=== PATIENT | female | born 1980 | race Caucasian/White ===

== ENCOUNTER 2017-01-19 14:33 | Inpatient (IN) | payer MEDICARE, MEDICAID ==
--- NOTE | 2017-01-19 16:31 | ED ---
Psych HPI - General Chief Complaint: Psychiatric Symptoms Stated Complaint: suicidal Time Seen by Provider: 01/19/17 15:30 Source: patient, RN notes reviewed Mode of arrival: ambulatory - History of Present Illness Initial Comments: This is a 36-year-old female history of OCD and depression who states she's feeling suicidal. She has had thoughts of overdosing on her medications. She states the main reason because her kids. She states she is not really seeing his last 8 years and she has had in the strange relationship with him. She has any fevers chills sweats he has had racing thoughts she has very obsessive- compulsive recently. She only occasionally drinks she denies any street drugs she does smoke cigarettes. MD Complaint: suicidal ideation, feels depressed - Related Data Home Medications Medication Instructions Recorded Confirmed Albuterol Inhaler [Ventolin Hfa 2 puff INHALATION RT-BID PRN 01/19/17 01/19/17 Inhaler] Doxycycline Hyclate [Vibramycin] 100 mg PO BID 01/19/17 01/19/17 Gabapentin [Neurontin] 400 mg PO TID 01/19/17 01/19/17 Hydrocodone/Acetaminophen [[place] 1 tab PO TID PRN 01/19/17 01/19/17 7.5-325] Ondansetron [Zofran] 4 mg PO TID PRN 01/19/17 01/19/17 Prazosin HCl 2 mg PO HS 01/19/17 01/19/17 QUEtiapine [SEROquel] 50 mg PO HS 01/19/17 01/19/17 Sertraline [Zoloft] 100 mg PO DAILY 01/19/17 01/19/17 buPROPion XL [Wellbutrin Xl] 150 mg PO DAILY 01/19/17 01/19/17 Allergies Allergy/AdvReac Type Severity Reaction Status Date / Time tramadol Allergy Unknown Verified 01/19/17 16:16 varenicline [From Chantix] Allergy Unknown Verified 01/19/17 16:16 acetaminophen [From Percocet] AdvReac Itching Verified 01/19/17 16:16 oxycodone [From Percocet] AdvReac Itching Verified 01/19/17 16:16 Review of Systems ROS Statement: Those systems with pertinent positive or pertinent negative responses have been documented in the HPI. ROS Other: All systems not noted in ROS Statement are negative. Past Medical History Additional Past Medical History / Comment(s): back pain, slipped disks in back, borderline personality disorder. History of Any Multi-Drug Resistant Organisms: None Reported Past Surgical History: Tubal Ligation Past Psychological History: Anxiety, Bipolar, Depression Smoking Status: Current every day smoker Past Alcohol Use History: Rare Past Drug Use History: None Reported General Exam - General Exam Comments Initial Comments: This is a well-developed well-nourished awake alert oriented 3 female Limitations: no limitations General appearance: alert, anxious Head exam: Present: atraumatic, normocephalic, normal inspection Eye exam: Present: normal appearance, PERRL, EOMI. Absent: scleral icterus, conjunctival injection, periorbital swelling ENT exam: Present: normal exam, mucous membranes moist Neck exam: Present: normal inspection. Absent: tenderness, meningismus, lymphadenopathy Respiratory exam: Present: normal lung sounds bilaterally. Absent: respiratory distress, wheezes, rales, rhonchi, stridor Cardiovascular Exam: Present: regular rate, normal rhythm, normal heart sounds. Absent: systolic murmur, diastolic murmur, rubs, gallop, clicks GI/Abdominal exam: Present: soft, normal bowel sounds. Absent: distended, tenderness, guarding, rebound, rigid Extremities exam: Present: normal inspection, full ROM, normal capillary refill. Absent: tenderness, pedal edema, joint swelling, calf tenderness Back exam: Present: normal inspection Neurological exam: Present: alert, oriented X3, CN II-XII intact Psychiatric exam: Present: depressed, suicidal ideation Skin exam: Present: warm, dry, intact, normal color. Absent: rash Course Vital Signs 01/19/17 01/19/17 15:01 17:47 Temperature 98.3 F 99.1 F Pulse Rate 128 H 86 Respiratory 18 18 Rate Blood Pressure 123/87 118/68 O2 Sat by Pulse 97 98 Oximetry Medical Decision Making - Medical Decision Making The patient was evaluated by the psychiatric service and she will be admitted for inpatient treatment. - Lab Data Lab Results 01/19/17 01/19/17 Range/Units 16:20 16:20 Urine HCG, Qual Not Detected (Not Detectd) Urine Opiates Screen Not Detected (NotDetected) Ur Oxycodone Screen Not Detected (NotDetected) Urine Methadone Screen Not Detected (NotDetected) Ur Propoxyphene Screen Not Detected (NotDetected) Ur Barbiturates Screen Not Detected (NotDetected) U Tricyclic Antidepress Detected H (NotDetected) Ur Phencyclidine Scrn Not Detected (NotDetected) Ur Amphetamines Screen Not Detected (NotDetected) U Methamphetamines Scrn Not Detected (NotDetected) U Benzodiazepines Scrn Not Detected (NotDetected) Urine Cocaine Screen Not Detected (NotDetected) U Marijuana (THC) Screen Not Detected (NotDetected) Disposition Clinical Impression: Depression, Suicidal ideation Disposition: TRANSFER TO PSYCH HOSP/UNIT Condition: Stable
[2017-01-19] MEDS ORDERED: ACETAMINOPHEN TAB 325 MG TAB PO PRN (17:47)
[2017-01-19] MEDS ORDERED: MAGNESIUM HYDROXIDE 2,400 MG/10 ML CUP PO PRN (17:47)
[2017-01-19] MEDS ORDERED: MAG HYDROX/AL HYDROX/SIMETH 30 ML CUP PO PRN (17:47)
[2017-01-19] MEDS ORDERED: ALBUTEROL INHALER 60 PUFF/8 GM INHALER INHALATION PRN (17:48)
[2017-01-19] MEDS ORDERED: ONDANSETRON 4 MG TAB PO PRN (17:48)
[2017-01-19] MEDS ORDERED: LORazepam 2 MG/ML SYRINGE IM PRN (17:51)
[2017-01-19] MEDS ORDERED: ZIPRASIDONE 20 MG VIAL IM PRN (17:52)
[2017-01-19] MEDS: QUEtiapine 50 MG TAB PO SCH (20:49)
[2017-01-19] MEDS: GABAPENTIN 400 MG CAP PO SCH (20:49)
[2017-01-19] MEDS ORDERED: PRAZOSIN 1 MG CAP PO SCH (21:00)
[2017-01-20] MEDS: GABAPENTIN 400 MG CAP PO SCH ×3 (09:01→21:05)
[2017-01-20] MEDS: SERTRALINE 100 MG TAB PO SCH (09:01)
[2017-01-20 10:05] LABS: Basophils % (A) 1 %; CH 30.6; CHCM 33.6; Eosinophils # (A) 0.2 k/uL (0-0.7); Eosinophils % (A) 4 %; HCT 40.9 % (34.0-46.0); HDW 2.63; HGB 13.4 gm/dL (11.4-16.0); Luc # (Auto) 0.12; Luc % (Auto) 2; Lymphocytes # (A) 2.2 k/uL (1.0-4.8); Lymphocytes % (A) 45 %; MCHC 32.9 g/dL (31.0-37.0); MCV 91.3 fL (80.0-100.0); Mean Platelet Volume 7.7; Monocytes # (A) 0.4 k/uL (0-1.0); Monocytes % (A) 8 %; Neutrophils % (A) 39 %; RBC 4.48 m/uL (3.80-5.40); WBC (Perox) 4.87
[2017-01-20 10:25] LABS: ALT 30 U/L (9-52); AST 28 U/L (14-36); Alkaline Phosphatase 46 U/L (38-126); Anion Gap 11 mmol/L; Blood Urea Nitrogen 15 mg/dL (7-17); Calcium 8.9 mg/dL (8.4-10.2); Carbon Dioxide 22 mmol/L (22-30); Chloride 107 mmol/L (98-107); Glucose 72 mg/dL (74-99); Non-African American GFR(MDRD) >60 (>60 ml/min/1.73 sqM); Potassium 4.1 mmol/L (3.5-5.1); Sodium 140 mmol/L (137-145); Total Bilirubin 0.6 mg/dL (0.2-1.3); Total Protein 6.8 g/dL (6.3-8.2)
[2017-01-20] MEDS: buPROPion XL 150 MG TAB.ER.24H PO SCH (12:54)
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
--- NOTE | 2017-01-20 16:26 | P.CONS ---
History of Present Illness - Reason for Consult Consult date: 01/20/17 Medical management - History of Present Illness This is a 36-year-old female. She follows with the [facility] for healthcare. She has a past medical history of degenerative disc disease, cervical cancer, tobacco use and dependence, anxiety, bipolar. Patient states that she has had depression and suicidal ideation. Her therapist has tried to get her to come into the hospital for the past month. She has tried suicide in the past with overdose. She has been going to [facility] every 3 days to pharmacy picking technician her medications. She also complains of lower back pain with radiation down her right leg. She states she normally takes [place] 7.5 mg. [facility] has set her up to follow up with a possible neurosurgeon. Patient presented to [facility] emergency center with above concerns. TSH 1.680. HCG not detected. Urine drug screen is positive for tricyclic antidepressants. Review of Systems All systems: negative Constitutional: Denies chills, Denies fever Eyes: denies blurred vision, denies pain Ears, nose, mouth and throat: Denies headache, Denies sore throat Cardiovascular: Denies chest pain, Denies shortness of breath Respiratory: Denies cough Gastrointestinal: Denies abdominal pain, Denies diarrhea, Denies nausea, Denies vomiting Genitourinary: Denies dysuria, Denies hematuria Musculoskeletal: Denies myalgias Integumentary: Denies pruritus, Denies rash Neurological: Denies numbness, Denies weakness Psychiatric: Reports depression, Reports hopelessness, Reports suicidal ideation , Denies anxiety Endocrine: Denies fatigue, Denies weight change Past Medical History Additional Past Medical History / Comment(s): Degenerative disc disease of the lumbar spine, cervical cancer, borderline personality disorder. History of Any Multi-Drug Resistant Organisms: None Reported Past Surgical History: Tubal Ligation Additional Past Surgical History / Comment(s): Cone biopsy, tear duct surgery as an Past Psychological History: Anxiety, Bipolar, Depression Smoking Status: Current every day smoker Past Alcohol Use History: Rare Additional Past Alcohol Use History / Comment(s): Patient is a smoker of a half a pack of cigarettes per day and she was 14 years old. She denies any medical marijuana, marijuana, street drug use. She drinks alcohol rarely. She has 3 children with no major medical problems. Past Drug Use History: None Reported - Past Family History Father Additional Family Medical History / Comment(s): Father is alive at age 68 with history of prostate cancer. Mother Additional Family Medical History / Comment(s): Mother is alive at age 67 with no major medical problems. Sister(s) Additional Family Medical History / Comment(s): Patient has one sister and one half-brother with no major medical problems. Medications and Allergies Home Medications Medication Instructions Recorded Confirmed Type Albuterol Inhaler [Ventolin Hfa 2 puff INHALATION RT-BID PRN 01/19/17 01/19/17 History Inhaler] Doxycycline Hyclate [Vibramycin] 100 mg PO BID 01/19/17 01/19/17 History Gabapentin [Neurontin] 400 mg PO TID 01/19/17 01/19/17 History Hydrocodone/Acetaminophen [[place] 1 tab PO TID PRN 01/19/17 01/19/17 History 7.5-325] Ondansetron [Zofran] 4 mg PO TID PRN 01/19/17 01/19/17 History Prazosin HCl 2 mg PO HS 01/19/17 01/19/17 History QUEtiapine [SEROquel] 50 mg PO HS 01/19/17 01/19/17 History Sertraline [Zoloft] 100 mg PO DAILY 01/19/17 01/19/17 History buPROPion XL [Wellbutrin Xl] 150 mg PO DAILY 01/19/17 01/19/17 History Allergies Allergy/AdvReac Type Severity Reaction Status Date / Time tramadol Allergy Unknown Verified 01/19/17 16:16 varenicline [From Chantix] Allergy Unknown Verified 01/19/17 16:16 acetaminophen [From Percocet] AdvReac Itching Verified 01/19/17 16:16 oxycodone [From Percocet] AdvReac Itching Verified 01/19/17 16:16 Physical Exam Vitals: Vital Signs Temp Pulse Pulse Resp BP BP Pulse Ox 01/20/17 06:13 98.2 F 75 12 103/64 01/19/17 20:51 105 H 109/77 01/19/17 18:12 97.6 F 103 H 103 H 107/75 01/19/17 17:47 99.1 F 86 18 118/68 98 Intake and Output 01/19/17 01/20/17 01/20/17 22:59 06:59 14:59 Other: Weight 60.101 kg Gen: This is a 36-year-old female. She is cooperative and appears to be in no acute distress. HEENT: Head is atraumatic, normocephalic. Pupils equal, round. Sclerae is anicteric. NECK: Supple. No JVD. No lymphadenopathy. No thyromegaly. LUNGS: Clear to auscultation. No wheezes or rhonchi. No intercostal retractions. HEART: Regular rate and rhythm. No murmur. ABDOMEN: Soft. Bowel sounds are present. No masses. No tenderness. EXTREMITIES: No pedal edema. No calf tenderness. NEUROLOGICAL: Patient is awake, alert and oriented x3. Cranial nerves 2 through 12 are grossly intact. Results CBC & Chem 7: 01/20/17 09:13 01/20/17 09:13 Assessment and Plan Plan: 1. Depression recurrent with suicidal ideation. Patient admitted to the mental health unit. Continue current plan of care. 2. Chronic back pain. Continue Neurontin and Tylenol. Patient states she is normally on [place] 7.53 times daily as needed. 3. History of cervical cancer stable. 4. Tobacco use and dependence. Continue nicotine patch. Impression and plan of care have been directed as dictated by the signing physician. Jaimee Galloway nurse practitioner acting as scribe for signing physician. Time with Patient: Greater than 30
[2017-01-20] MEDS: NICOTINE 14MG/24HR PATCH TRANSDERM SCH (16:38)
[2017-01-20] MEDS: hydrOXYzine PAMOATE 25 MG CAP PO PRN (16:39)
[2017-01-20] MEDS: QUEtiapine 50 MG TAB PO SCH (21:05)
[2017-01-20] MEDS: PRAZOSIN 1 MG CAP PO SCH (21:05)
[2017-01-21] MEDS: NICOTINE 14MG/24HR PATCH TRANSDERM SCH (09:10)
[2017-01-21] MEDS: SERTRALINE 100 MG TAB PO SCH (09:11)
[2017-01-21] MEDS: GABAPENTIN 400 MG CAP PO SCH ×3 (09:11→20:29)
[2017-01-21] MEDS: buPROPion XL 150 MG TAB.ER.24H PO SCH (09:11)
[2017-01-21] MEDS: hydrOXYzine PAMOATE 25 MG CAP PO PRN ×2 (09:11→21:31)
[2017-01-21] MEDS: LORazepam 1 MG TAB PO PRN (15:45)
--- NOTE | 2017-01-21 17:21 | P.PN ---
Progress Note - Text SUBJECTIVE: I reviewed the medical record and interviewed Ms. Macias. She complained of "severe" subjective anxiety and "racing thoughts." She controls her anxiety by focusing on grounding activities such as coloring. She described the "racing thoughts " as a series of thoughts that are loosely linked to each other that she experiences as automatic and difficult to control. This "racing thoughts" interferes with inability to fall asleep at night. We discussed treatment options for her subjective anxiety complaints and "racing thoughts". She agreed toa trial of Thorazine instead of the nighttime dosing of Seroquel. She was unaware of the when necessary dosing of lorazepam. She expresses concern about taking a benzodiazepine. She is opposed to Xanax because of the quick onset and short duration. She prefers a prescription for clonazepam. I reminded her discussion yesterday where she told me that her provider at [facility] discontinued the clonazepam. OBJECTIVE: She presented as a thin restless 36-year-old female who was pleasant on approach. She maintained eye contact and attended the interview. She had a bright facial expression. She fidgeted in her chair but displayed no abnormal involuntary movements. Her speech was spontaneous with slight increase in rate and rhythm. Her affect was bright, stable and appropriate. She denied suicidal ideation or wishes. She denied homicidal ideation. She did not expressed depressive cognitions including hopelessness, helplessness and worthlessness. She ruminated on the above symptoms particularly the subjective anxiety. She did not express phobias, ideas reference or paranoid ideation. Her thinking was abstract. Associations were logical and coherent. She described an experience where she hears a young child's voice that she calls Jackelin. She alleges that she has been experiencing this voice since she was a child. The experiences positive and supportive. ASSESSMENT: Her anxiety complaints are disproportionate to her presentation. She appears restless and somewhat hyperverbal. PLAN: Continue inpatient psychiatric hospitalization. Continue Wellbutrin XL her 150 mg daily in addition to Zoloft 100 mg daily. Discontinue Seroquel and begin a trial of Thorazine 25 mg at bedtime. Titrate the Thorazine according to the Rene and side effects. Continue gabapentin 400 mg by mouth 3 times a day or anxiety and pain complaints. Continue prazosin 4 mg at bedtime for a reported diagnosis of PTSD. Encourage participation in therapeutic groups and activities. Evaluate clinical status and response to treatment on a daily basis.
[2017-01-21] MEDS: PRAZOSIN 1 MG CAP PO SCH (20:30)
[2017-01-21] MEDS ORDERED: chlorproMAZINE 25 MG TAB PO SCH (21:00)
[2017-01-22] MEDS: buPROPion XL 150 MG TAB.ER.24H PO SCH (08:38)
[2017-01-22] MEDS: GABAPENTIN 400 MG CAP PO SCH (08:39)
[2017-01-22] MEDS: LORazepam 1 MG TAB PO PRN ×2 (08:40→22:05)
[2017-01-22] MEDS: NICOTINE 14MG/24HR PATCH TRANSDERM SCH (08:40)
[2017-01-22] MEDS ORDERED: SERTRALINE 100 MG TAB PO SCH (09:00)
--- NOTE | 2017-01-22 14:01 | P.PN ---
Progress Note - Text SUBJECTIVE: I reviewed the medical record and interviewed Ms. Macias. She complained of "severe" subjective anxiety, "racing thoughts", poor sleep and nightmares. She reported no change in her sleep or her nightmares with substitution of Thorazine for Seroquel. We discussed treatment options and agreed to discontinue Wellbutrin, increased Zoloft to 150 mg daily, increase gabapentin to 600 mg 3 times a day and increase Thorazine 50 mg at bedtime. She described temporary relief of subjective anxiety with the 1 mg dose of lorazepam OBJECTIVE: She presented as a thin and dramatic 36-year-old female who was pleasant on approach. She maintained eye contact and attended the interview. She had a bright facial expression. She was not as restless as yesterday. Her speech was spontaneous with respect rate and rhythm. Her affect was bright, stable and appropriate. She denied suicidal ideation or wishes. She denied homicidal ideation. She did not expressed depressive cognitions including hopelessness, helplessness and worthlessness. She ruminated on the above symptoms particularly the subjective anxiety. She did not express phobias, ideas reference or paranoid ideation. Her thinking was abstract. Associations were logical and coherent. She described an experience where she hears a young child's voice that she calls Jackelin. She alleges that she has been experiencing this voice since she was a child. The experiences positive and supportive. ASSESSMENT: Her anxiety complaints are disproportionate to her presentation. She appears restless and somewhat hyperverbal. PLAN: Continue inpatient psychiatric hospitalization. Discontinue Wellbutrin XL , increase Zoloft 150 mg daily, increase Thorazine to 50 mg at bedtime and increase gabapentin to 600 mg 3 times a day. Continue prazosin 4 mg at bedtime for a reported diagnosis of PTSD. Encourage participation in therapeutic groups and activities. Evaluate clinical status and response to treatment on a daily basis.
[2017-01-22] MEDS: hydrOXYzine PAMOATE 25 MG CAP PO PRN (15:58)
[2017-01-22] MEDS: GABAPENTIN 300 MG CAP PO SCH ×2 (15:59→22:05)
[2017-01-22] MEDS: chlorproMAZINE 25 MG TAB PO SCH (22:04)
[2017-01-22] MEDS: PRAZOSIN 1 MG CAP PO SCH (22:05)
[2017-01-23] MEDS: SERTRALINE 50 MG TAB PO SCH (10:06)
[2017-01-23] MEDS: GABAPENTIN 300 MG CAP PO SCH ×3 (10:06→21:41)
[2017-01-23] MEDS: NICOTINE 14MG/24HR PATCH TRANSDERM SCH (10:06)
[2017-01-23] MEDS: LORazepam 1 MG TAB PO PRN ×2 (10:07→21:44)
[2017-01-23] MEDS: cloNIDine HCL 0.1 MG TAB PO SCH (14:39)
--- NOTE | 2017-01-23 14:41 | P.PN ---
Progress Note - Text SUBJECTIVE: I reviewed the medical record and interviewed Ms. Macias. She complained of "racing thoughts" and alleged that the only medication that addressed this problem was Adderall. "I'm not suicidal anymore but I just can' t concentrate. I can't focus." She talked about having difficulty concentrating and attending during therapeutic groups. She understands we will not prescribe Adderall or other psychostimulants. She may benefit from a trial of Strattera but is not on formulary. As an alternative we discussed a trial of Catapres for treatment of her difficulty concentrating and attending. She agreed to a trial of a small dose. OBJECTIVE: She presented as a thin and dramatic 36-year-old female who was pleasant on approach. She maintained eye contact and attended the interview. She had a blunted but irritable facial expression. She was not restless or fidgety. Her speech was spontaneous with respect rate and rhythm. Her affect was blunted, irritable but appropriate. She denied suicidal ideation or wishes. She denied homicidal ideation. She did not expressed depressive cognitions including hopelessness, helplessness and worthlessness. She ruminated on the above symptoms particularly the subjective anxiety. She did not express phobias, ideas reference or paranoid ideation. Her thinking was abstract. Associations were logical and coherent. She described an experience where she hears a young child's voice that she calls Jackelin. She alleges that she has been experiencing this voice since she was a child. The experiences positive and supportive. ASSESSMENT: She is denying current anxiety symptoms or thoughts of or suicide. Her primary concerns was attention and concentration will not have access to psychostimulants. PLAN: Continue inpatient psychiatric hospitalization. Continue Zoloft 150 mg daily, Thorazine to 50 mg at bedtime and increase gabapentin to 600 mg 3 times a day. Continue prazosin 4 mg at bedtime for a reported diagnosis of PTSD. Trial of clonidine 0.1 mg daily. Encourage participation in therapeutic groups and activities. Evaluate clinical status and response to treatment on a daily basis.
[2017-01-23] MEDS: chlorproMAZINE 25 MG TAB PO SCH (21:40)
[2017-01-23] MEDS: PRAZOSIN 1 MG CAP PO SCH (21:44)
[2017-01-24 06:28] VITALS: TEMP 98
[2017-01-24] MEDS: cloNIDine HCL 0.1 MG TAB PO SCH (10:07)
[2017-01-24] MEDS: GABAPENTIN 300 MG CAP PO SCH (10:08)
[2017-01-24] MEDS: NICOTINE 14MG/24HR PATCH TRANSDERM SCH (10:09)
[2017-01-24] MEDS: SERTRALINE 50 MG TAB PO SCH (10:09)
[2017-01-24] MEDS: LORazepam 1 MG TAB PO PRN (10:12)
[2017-01-24 10:14] VITALS: BP 101/66; PULSE 116; RESP 18
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
== END 2017-01-24 15:05 | disposition home or self-care (01) | DRG 885 ==
LOC: EC 14:33 → 3MHU 17:41
PROVIDERS: ADMIT Psychiatry & Neurology Psychiatry; ATTEND Psychiatry & Neurology Psychiatry
DX: F33.2 Major depressive disorder, recurrent severe without psychotic features (principal); R45.851 Suicidal ideations; F44.81 Dissociative identity disorder; F17.200 Nicotine dependence, unspecified, uncomplicated; F14.90 Cocaine use, unspecified, uncomplicated; F42.9 Obsessive-compulsive disorder, unspecified; F43.10 Post-traumatic stress disorder, unspecified; F60.3 Borderline personality disorder; J42 Unspecified chronic bronchitis; Z63.8 Other specified problems related to primary support group; Z79.899 Other long term (current) drug therapy; Z85.41 Personal history of malignant neoplasm of cervix uteri; Z91.5 Personal history of self-harm; M51.36 Other intervertebral disc degeneration, lumbar region; G89.29 Other chronic pain; Z79.2 Long term (current) use of antibiotics; Z88.5 Allergy status to narcotic agent; Z88.8 Allergy status to other drugs, medicaments and biological substances
CPT/HCPCS: 80053; 80306; 81025; 82075; 84443; 85025; 99285

== ENCOUNTER → 2017-06-19 | Outpatient (CLI) | payer MEDICARE, OTHER ==
[2017-06-13 14:36] VITALS: BMI 21.6
[2017-06-19 12:15] VITALS: BP 125/85; PULSE 112; RESP 18; TEMP 98.4
--- NOTE | 2017-06-20 11:11 | P.CONS ---
History of Present Illness - Reason for Consult Consult date: 06/19/17 - History of Present Illness This is the initial consultation visit for this 56 years old female with a chronic history of severe low back pain started 3 years ago, pain started after she fell and she landed on her back, from the time she starts feeling severe back pain with radiation to the lower extremity, associated with numbness and tingling sensation in the lower extremity mainly on the right side, she denies any motor or sensory deficit, no fever or night sweats and no change in the bowel movement or urination, she tried medication management Motrin Percocet Neurontin she gets some benefit, and she tried yoga , physical therapy, TENS unit and aqua therapy with some benefit , but the intensity of the pain fluctuates between 5/10 and increases to 8/10 Patient had lumbar epidural steroid injections done in the past at different institutions and she had only minimal benefit . Past Medical History Past Medical History: Cancer, Pneumonia, Skin Disorder Additional Past Medical History / Comment(s): Degenerative disc disease of the lumbar spine, cervical cancer, SENSITIVE SKIN, GETS RASH EASILY, HYPOGLYCEMIC History of Any Multi-Drug Resistant Organisms: None Reported Past Surgical History: Tubal Ligation Additional Past Surgical History / Comment(s): PAIN INJECTIONS IN BACK, Cone biopsy, tear duct surgery as an , "CERVIX FROZEN" Past Anesthesia/Blood Transfusion Reactions: No Reported Reaction Smoking Status: Current every day smoker - Past Family History Father Additional Family Medical History / Comment(s): Father is alive at age 68 with history of prostate cancer. Mother Additional Family Medical History / Comment(s): Mother is alive at age 67 with no major medical problems. Sister(s) Additional Family Medical History / Comment(s): Patient has one sister and one half-brother with no major medical problems. Medications and Allergies Home Medications Medication Instructions Recorded Confirmed Type Albuterol Inhaler [Ventolin Hfa 2 puff INHALATION RT-BID PRN 01/19/17 06/19/17 History Inhaler] Ondansetron [Zofran] 4 mg PO TID PRN 01/19/17 06/19/17 History Prazosin HCl 4 mg PO HS 01/19/17 06/19/17 History Atomoxetine HCl [Strattera] 80 mg PO QAM 06/13/17 06/19/17 History Biotin 5,000 mcg PO DAILY 06/13/17 06/19/17 History Cholecalciferol [Vitamin D3] 5,000 unit PO DAILY 06/13/17 06/19/17 History Multivit with Calcium,Iron,Min 1 each PO DAILY 06/13/17 06/19/17 History [Women's Multivitamin] QUEtiapine FUMARATE [SEROquel] 25 mg PO BID 06/13/17 06/19/17 History QUEtiapine [SEROquel] 50 mg PO HS 06/13/17 06/19/17 History Sertraline HCl [Zoloft] 200 mg PO BID 06/13/17 06/19/17 History hydrOXYzine PAMOATE [Vistaril] 50 mg PO TID PRN 06/13/17 06/19/17 History Diclofenac Sodium [Voltaren Gel] 1 applicate TOPICAL DIRECTED 06/19/17 History Menthol [Icy Hot] 1 patch TOPICAL [id number] PRN 06/19/17 06/19/17 History Allergies Allergy/AdvReac Type Severity Reaction Status Date / Time tramadol Allergy Rash/Hives/FAST Verified 06/19/17 12:03 HEART RATE varenicline [From Chantix] Allergy SUICIDAL Verified 06/19/17 12:03 IDEATION oxycodone [From Percocet] AdvReac Itching Verified 06/19/17 12:03 Physical Exam Vitals: Vital Signs Temp Pulse Resp BP Pulse Ox 06/19/17 12:04 98.4 F 112 H 18 125/85 100 Social history : smoker , NO ETOH , NO Illegal drugs use . Review of Systems : 1- Constitutional : no chills , no fever , no night sweats , 2- Ears : no ear discharge , no change in hearing 3-Nose, Mouth ,Throat ; no bleeding gums, no sore throat , no epistaxis , 4-Cardiovascular : Denies chest pain, , no orthopnea , no palpitation 5-Respiratory : Denies cough , no dyspnea , no hemoptysis 6-Gastrointestinal :, no change in bowel habits , no coffee- ground emesis . 7-Genitourinary : No hematuria , no discharge , no incontinence, 8-Musculoskeletal : No gait dysfunction , report low back pain , 9- Neurological : no ataxia , no tremor , no sezure , 10-Psychatric , no suicidal ideation no hallucination 11- Endocrine : no cold intolerence , no polyuria , no polydypsia , 12-Hematologic : no easy bleeding , no easy brusing , 13-Allergic / immunology : no angioedema , no wheezing ,no allergic rhinitis 14-Integumentary : no brttle nails , no change hair / nails , no foot/leg ulcers . Physical Examinations : 1-Constitutional : Cooperative , not in acute distress . 2-HEENT : nech ; supple , no Lymphadenopathy , no Thyromegaly , :eyes , no icterus, no photophobia . ENT : , normal oropharynx , no Thrush 3- Respiratory : Chest clear to auscultations Bilaterally , no wheezing . 4- Cardiovascular : regular rate and rhythem , S1 , S2 , no S3 , no S4. 5- Gastrointestinal: abdomen soft no tenderness , no organomegally . 6- Genitourinary : Defferred . 7-Integumentary : No cellulitis , no ulcers , normal skin turgor , no cyanotic . 8- neurologic : Cranial nerve II to XII intact , no focal neurological deffecit 9-psychatric : alert , oriented X 3 , appropriate affect , intact judgment and insight . 10-Lymphatic : no Lymphadenopathy. 11- musculoskeltal: normal gait Cervical Spine motor stregnth in the deltoid and biceps, normal right side , normal Left side Lumber spine moter stegnth lower extremities ,thigh and legs 5/5 Right side , 5/5 Left side deep tendon reflexes : normal Knee Jerk , normal ankle Jerk positive lumber facet Loading Test Range of motion of the lumbar spine Flexion 30 degrees, extension 10 degrees strait leg raising test , positive at 30 degree Fabere test positive RT and positive LT . Sever tenderness over the Sacroiliac joint on the R and L sides Results Comments: MRI of the lumbar spine= L4 5, L5-S1 bulging disc disease with facet hypertrophy and the spinal canal stenosis , Assessment and Plan Plan: Assessment and plan= chronic low back pain secondary to lumbar degenerative disc disease , lumbar spondylosis with lumbar facet arthropathy , Patient had lumbar epidural steroid injections in the past with only minimal benefi Medication managements= patient will be given prescriptions 1-Motrin 800 mg 3 times a day 2-baclofen 10 mg daily at bedtime 3-she will continue Neurontin 800 mg 3 times a day Interventional pain management= patient will be scheduled to have bilateral medial branch block lumbar area at L3-4 /L4 5/L5-S1 ,we will do it twice,and if she had more than 50% decrease in her pain ,then we will proceed with the radiofrequency ablation of the medial branch lumbar area Time with Patient: Greater than 30
== END | disposition home or self-care (01) ==
LOC: PNWHC3 11:41
PROVIDERS: ATTEND Specialist
DX: M51.36 Other intervertebral disc degeneration, lumbar region (principal); M47.816 Spondylosis without myelopathy or radiculopathy, lumbar region; M46.86 Other specified inflammatory spondylopathies, lumbar region; F17.200 Nicotine dependence, unspecified, uncomplicated; Z79.899 Other long term (current) drug therapy; Z88.6 Allergy status to analgesic agent; Z88.5 Allergy status to narcotic agent
CPT/HCPCS: 99201

== ENCOUNTER 2017-07-19 09:17 | Day surgery (SDC) | payer MEDICARE, OTHER ==
[2017-07-14 12:14] VITALS: BMI 21.4
[~2017-07-19 09:17] MED LIST: LACTATED RINGERS 1,000 ML IV SCH
[2017-07-19 09:42] VITALS: RESP 16; TEMP 98.3
[2017-07-19] MEDS ORDERED: LIDOCAINE 1% 20 ML VIAL (10MG/ML) FOR IV START INTRADERMA ONE (09:50)
--- NOTE | 2017-07-19 10:46 | P.PCN ---
Date of Procedure: 07/19/17 Surgeon: Tony Darby Pathology: none sent Condition: stable Disposition: PACU Description of Procedure: PREOPERATIVE DIAGNOSIS: L3-L4, L4-L5, and L5-S1 spondylosis without myelopathy and facet arthropathy. POSTOPERATIVE DIAGNOSIS: L3-L4, L4-L5, and L5-S1 spondylosis without myelopathy and facet arthropathy. PROCEDURE DESCRIPTION: Patient presents for L3-L4, L4-L5 and L5-S1 diagnostic medial branch blocks under fluoroscopic guidance. The procedure is performed using fluoroscopic guidance during needle placement to assure proper position and maximize safety. ANESTHESIA: Local with 1% lidocaine; conscious sedation EBL: Minimal PROCEDURE INDICATION: Patient with lumbar facet arthropathy signs and symptoms, here for diagnostic medial branch block. Pt does not take any blood thinning medications. PROCEDURE DESCRIPTION: The patient was seen and identified in the preoperative area. Risks, benefits, complications, and alternatives were discussed with the patient (including but not limited to incomplete pain relief, bleeding, infection, nerve damage, and allergies to medications), the patient agreed to proceed with the procedure and signed the consent after all questions were answered. Patient was taken to the OR and time out was completed to verify proper patient, position, laterality of pain, and allergies. Pt was placed in the prone position and a pillow was placed under the abdomen to reduce lumbar lordosis. The lumbosacral area was prepped and draped in the usual sterile fashion. Using oblique fluoroscopy, the eye of the "Rohit dog" of right L4 vertebral body, which corresponds to the path of the medial branch originating from the level above, which is L3 in this case, was identified. Subsequently, a 22-gauge 3.5-inch spinal needle was inserted under fluoroscopic guidance toward the eye of the "Rohit dog" of the right L4 vertebral body, corresponding to the junction of the superior articular process and the transverse process of the pedicle of the same level. After needle tip confirmation on lateral view and after negative aspiration for CSF and blood and without paresthesias, 1 mL of a 6 ml solution of 0.5% preservative-free bupivacaine and 40 mg Kenalog was injected. Subsequently the needle was withdrawn intact and the same procedure was repeated for the right L4, right L5, left L3, left L4, and left L5 medial branches which together with right L3 medial branch correspond to the sensory innervation of the bilateral L3-L4, L4-L5, and L5-S1 facet joints. Needle was withdrawn intact after each injection. At the end of the procedure, the skin was cleansed and bandages were applied. COMPLICATIONS: None. DISPOSITION/PLAN: The patient taken to the recovery area after the procedure in a stable condition for observation. Patient was reexamined prior to discharge and there were no issues. Patient was discharged home, accompanied by an adult, after meeting discharged criteria. Discharge instructions were give to the patient by the staff. Patient was specifically instructed not to drive today and to rest for the rest of the day.If patient has relief, she will be scheduled for repeat lumbar medial branch block.
[2017-07-19] MEDS ORDERED: IV FLUID CONTINUATION 1,000 ML IV ONE (10:58)
[2017-07-19 11:22] VITALS: BP 125/86; PULSE 86
--- NOTE | 2017-07-19 11:52 | FL ---
EXAMINATION TYPE: FL guidance operating room DATE OF EXAM: 07/19/2017 HISTORY: Flouroscopy time 14 seconds of fluoroscopy provided. IMPRESSION: 1. Fluoroscopy time.
== END 2017-07-19 11:40 | disposition home or self-care (01) ==
LOC: ORPAIN 09:17
PROVIDERS: ATTEND Anesthesiology
DX: M47.816 Spondylosis without myelopathy or radiculopathy, lumbar region (principal); M47.817 Spondylosis without myelopathy or radiculopathy, lumbosacral region; F17.200 Nicotine dependence, unspecified, uncomplicated; Z79.899 Other long term (current) drug therapy; Z88.5 Allergy status to narcotic agent
CPT/HCPCS: 81025; 64493; 64494; 64495; 99152; J2250; J3301

== ENCOUNTER 2017-08-10 06:09 | Day surgery (SDC) | payer MEDICARE, OTHER ==
[2017-08-07 14:55] VITALS: BMI 21.9
[2017-08-10 06:25] VITALS: TEMP 96.9
[2017-08-10] MEDS ORDERED: LIDOCAINE 1% 20 ML VIAL (10MG/ML) FOR IV START INTRADERMA ONE (06:30)
--- NOTE | 2017-08-10 07:27 | P.PCN ---
Date of Procedure: 08/10/17 Procedure(s) Performed: PREOPERATIVE DIAGNOSIS : 1- Lumbar spondylosis with Facet Arthropathy without myelopathy . 2- Lumber degenerative disc disease POSTOPERATIVE DIAGNOSIS: 1- Lumbar spondylosis with Facet Arthropathy without myelopathy . 2- Lumber degenerative disc disease PROCEDURE: Diagnostic bilateral L3 -4 , L4 -5 , and L5-S1 medial branch block under fluoroscopy ANESTHESIA: Local with 1% lidocaine 6 ml ; IV sedation with Versed 2 mg and Fentanyl 100 mcg. EBL: Minimal COMPLICATION: None. IV FLUIDS: 100 mL of normal saline. PROCEDURE INDICATION: Chronic low back pain secondary to Facet arthropathy unresponsive to conservative treatment. PROCEDURE DESCRIPTION: the patient was seen and identified in the preop holding area , risks and benefits and possible complications of the procedure and alternative were discussed with the patient, and the patient agreed to proceed with the procedure and signed the consent , IV was started and vital signs monitored during the procedure and fluoroscopy was used to maximize the benefit and accuracy of the needle placement, and sedation was given to decrease patient anxiety, patient was taken to the procedure room and placed in prone position vital signs monitored in the back prepped with chlorhexidine X3 then under strict sterile technique using a right oblique fluoroscopy ,the junction of the transverse process and the superior articulating process of the right L3- 4 , L4- 5, and L5-S1 vertebra which corresponding to the fluoroscopy image of the eye of the Rohit dog on the block side for the medial branches and subsequently , after local infiltration of skin and subcu tissuies with lidocaine 1% one mL at each level ,then 22-gauge Quincke-type needles , 3 needle was used , each one of them placed at the junction of the base of the transverse process and the superior articular process at the appropriate level, and the needle was advanced until the periosteum contacted, needle placement confirmed with AP oblique and lateral view and after appropriate needle placement confirmed, and after negative aspiration for heme and CSF and there was no paresthesia 1-1/2 mL of Marcaine 0.5% mixed with 20 mg Kenalog , then half mL injected at each level after negative aspiration the needle subsequently removed and the same procedure repeated for the left side at left side at L3-4, L4- 5 and L5-S1 levels. At the end of the procedure and the needles removed and a bandage applied after the skin was cleaned the cleaning solution patient taken to recovery room in stable condition and monitors in the recovery room for 20-30 minutes and discharged home in stable condition after discharge criteria met and patient will follow up with the pain clinic in 2-4 weeks
[2017-08-10] MEDS ORDERED: IV FLUID CONTINUATION 700 ML IV ONE (07:35)
[2017-08-10 08:02] VITALS: BP 115/77; PULSE 95; RESP 18
--- NOTE | 2017-08-10 09:58 | FL ---
EXAMINATION TYPE: FL guided pain mgmt statistic DATE OF EXAM: 08/10/2017 HISTORY: Flouroscopy time 20 seconds of fluoroscopy provided. IMPRESSION: 1. Fluoroscopy time.
== END 2017-08-10 08:21 | disposition home or self-care (01) ==
LOC: ORPAIN 06:09
PROVIDERS: ATTEND Specialist
DX: G89.29 Other chronic pain (principal); M46.96 Unspecified inflammatory spondylopathy, lumbar region; M47.816 Spondylosis without myelopathy or radiculopathy, lumbar region; Z88.5 Allergy status to narcotic agent; Z88.8 Allergy status to other drugs, medicaments and biological substances
CPT/HCPCS: 64495; 64494; 64493; 99152; 81025; J2250; J3301; J3010

== ENCOUNTER 2017-10-25 09:37 | Day surgery (SDC) | payer MEDICARE, OTHER ==
[2017-10-20 08:49] VITALS: BMI 21.9
[2017-10-25] MEDS ORDERED: LACTATED RINGERS 1,000 ML IV SCH (10:00)
[2017-10-25 10:16] LABS: Glucose,Whole Blood 89 mg/dL (75-99)
[2017-10-25] MEDS ORDERED: LIDOCAINE 1% 20 ML VIAL (10MG/ML) FOR IV START INTRADERMA ONE (10:16)
--- NOTE | 2017-10-25 11:08 | P.PCN ---
Date of Procedure: 10/25/17 Surgeon: Tony Darby Pathology: none sent Condition: stable Disposition: PACU Description of Procedure: PREOPERATIVE DIAGNOSIS: Lumbar spondylosis without myelopathy and facet arthropathy POSTOPERATIVE DIAGNOSIS: Lumbar spondylosis without myelopathy and facet arthropathy PROCEDURES: Left Radiofrequency thermocoagulation, L3-L4, L4-L5, and L5-S1 medial branch, with fluoroscopic guidance. ANESTHESIA: 1% lidocaine plain; Conscious sedation with versed/fentanyl EBL: Minimal PROCEDURE INDICATION: The patient with low back pain secondary to lumbar arthropathy who had more than 50% relief of pain with previous diagnostic lumbar medial branch block with bupivacaine x 2 with good relief from previous right lumbar RFA. Patient presents for left lumbar RFA today; no use of blood thinners. PROCEDURE DESCRIPTION / TECHNIQUE: The patient was seen and identified in the preoperative area. Risks, benefits, complications, and alternatives were discussed with the patient (including but not limited to incomplete pain relief , bleeding, infection, nerve damage, and allergies to medications), the patient agreed to proceed with the procedure and signed the consent after all questions were answered. Patient was taken to the OR and time out was completed to verify proper patient , position, laterality of pain, and allergies. Pt was placed in the prone position. IV was started. Vital signs remained stable throughout the procedure. A pillow was placed under the patients chest to decrease lordosis. The lumbosacral area was prepped and draped in the usual sterile fashion. Vital signs were closely monitored during the procedure. Conscious sedation was used during the procedure to decrease patients anxiety. Using AP and then oblique fluoroscopy, the eye of the Rohit dog corresponding to the connection between the superior and transverse articular processes of left L3, L4, L5 and top of the sacrum were identified, marked, and localized with 1% lidocaine. Subsequently, a 18 gauge, 100-mm radiofrequency cannula with a 10-mm active tip was advanced guided by fluoroscopy to each of the eyes of the Rohit dog at the levels of all four medial branches. Each site then underwent sensory testing at 50 Hz and 0 to 1 volt and motor testing at 2 Hz and 0 to 3 volt with local stimulation, but no radicular symptoms down the legs. Thereafter all four medial branch sites underwent radiofrequency thermocoagulation at 80 degrees Celsius for 90 seconds after injecting 0.5 ml of PF lidocaine 1%. After thermocoagulation, 1 ml of the block solution containing Kenalog 40 mg and 2 mL of preservative-free normal saline was injected at all four medial branch levels after negative aspiration of CSF and blood and with no paresthesias. Cannulas were retracted while injecting lidocaine 1% until the needles were removed. At the end of the procedure, the skin was cleansed and bandages were applied. COMPLICATIONS: No acute complications. DISPOSITION / PLANS: The patient was placed in a supine position and transferred to the recovery area in a stable condition for observation and was discharged from the recovery room after meeting discharge criteria. Home discharge instructions given to the patient by the staff. The patient was reexamined prior to discharge and there were no issues. The patient will schedule a follow up in the clinic in 2-4 weeks.
--- NOTE | 2017-10-25 11:20 | FL ---
EXAMINATION TYPE: FL guided pain mgmt statistic DATE OF EXAM: 10/25/2017 HISTORY: Flouroscopy time 12 seconds of fluoroscopy provided. IMPRESSION: 1. Fluoroscopy time.
[2017-10-25] MEDS ORDERED: IV FLUID CONTINUATION 1,000 ML IV ONE (11:23)
[2017-10-25 23:24] VITALS: BP 119/60; PULSE 92; RESP 16; TEMP 98.2
== END 2017-10-25 11:49 | disposition home or self-care (01) ==
LOC: ORPAIN 09:37
PROVIDERS: ATTEND Anesthesiology
DX: G89.29 Other chronic pain (principal); M47.816 Spondylosis without myelopathy or radiculopathy, lumbar region; F32.9 Major depressive disorder, single episode, unspecified; F41.9 Anxiety disorder, unspecified; Z88.5 Allergy status to narcotic agent; Z88.8 Allergy status to other drugs, medicaments and biological substances
CPT/HCPCS: 81025; 64635; 64636 ×2; J2250; J1100; J2001; J3010; 99152

== ENCOUNTER → 2018-01-04 | Outpatient (CLI) | payer MEDICARE, OTHER ==
[2018-01-04 13:46] VITALS: BP 121/84; PULSE 104; RESP 20
--- NOTE | 2018-01-04 13:52 | P.PN ---
Progress Note - Text Progress Note Date: 01/04/18 Patient returns for followup for chronic back pain with radiation to buttocks bilaterally. Patient recently underwent bilateral lumbar RFA, which provided some relief for interval since procedures. Patient continues on [employer] medications for pain from PCP with good relief along with Motrin, gabapentin, baclofen. Patient denies adverse drug effects from medications. Today, pt denies new-onset weakness, bowel/bladder incontinence, or any other signs or symptoms of cauda equina syndrome. There are no signs of acute intoxication, and no indications of medication diversion or overuse. In addition to above, 13-point review of systems is also negative for chest pain , shortness of breath, changes in vision, changes in hearing, new onset weakness , abdominal pain, diarrhea, extreme fatigue, malaise, fever, skin changes, homicidal or suicidal ideation, or bowel or bladder incontinence. Vital Signs: Reviewed in EMR Gen: WDWN, AAOx3, NAD HEENT: NCAT, EOMI, hearing grossly normal Pulm: resp unlabored Abd: soft, NT, ND Neck: supple, trachea midline ROM in flexion lumbar spine: reduced ROM in extension lumbar spine: full Lumbar paravertebral tenderness: + Facet loading: + bilateral, R > L SI joint tenderness: + R > L Simeon's test: + R side Straight leg raise: neg Lower extremity: decreased ROM dorsiflexion/plantarflexion strength, hip flexion/extension, and knee flexion/extension secondary to pain Neuro: CN II-XII grossly intact, muscle strength lower extremities PRESERVED Imaging: Reviewed in EMR Assessment: 1. lumbar spondylosis 2. chronic pain syndrome 3. SIJ dysfunction Plan: 1. Explanation: Opioid and psychological risk scores were reviewed. Diagnoses , prognoses, and multiple treatment options including but not limited to physical therapy, interventional therapies, adjuvant medical therapies, narcotic medication therapies, and surgery were discussed with the patient and all questions were answered to the patient's satisfaction. 2. Opioid agreement: no opioids prescribed today 3. Counseling: The patient was counseled extensively on BODY MASS INDEX, EXERCISE. Specifically, the patient was instructed regarding the importance of weight control, and exercise in the context of both chronic pain and overall health. 4. Procedures: none for now 5. Consultations: None 6. Investigations: R shoulder X-ray 7. Medications: baclofen/Motrin/gabapentin with five refills, start lido ointment with two refills 8. Disposition: f/u for re-eval in 4-6 weeks PQRS measures: 1-Patient's medications are documented in the chart. 2-Tobacco use is positive/negative, counseling NOT given 3-Patient has not had a pneumococcal vaccine. 4-Advanced care planning discussed, patient unable to give. 5-Opioid contract signed with the patient. 6-Pain positive, follow-up visit or procedure scheduled 7-Patient's blood pressure measured and documented, and patient will follow up with the primary care due to hypertension. 8-Patient's weight was measured, and body mass index ABOVE the normal limits, and counseling was done. Patient instructed to follow up with PCP. 9-Patient WAS NOT identified as an unhealthy alcohol user.
--- NOTE | 2018-01-04 14:25 | XR ---
EXAMINATION TYPE: XR shoulder complete RT DATE OF EXAM: 01/04/2018 COMPARISON: NONE HISTORY: Pain TECHNIQUE: Three views are submitted. FINDINGS: The osseous structures are intact. There is no acute fracture or dislocation. The AC joint is maint ained. IMPRESSION: 1. No acute process. If symptoms persist consider MRI.
== END | disposition home or self-care (01) ==
LOC: PNWHC3 13:29
PROVIDERS: ATTEND Anesthesiology
DX: G89.4 Chronic pain syndrome (principal); M47.816 Spondylosis without myelopathy or radiculopathy, lumbar region; M53.3 Sacrococcygeal disorders, not elsewhere classified; Z79.1 Long term (current) use of non-steroidal anti-inflammatories (NSAID); Z79.899 Other long term (current) drug therapy; M19.011 Primary osteoarthritis, right shoulder
CPT/HCPCS: 73030; G0463; 99211

== ENCOUNTER → 2018-03-01 | Outpatient (CLI) | payer MEDICARE, OTHER ==
[2018-03-01 13:54] VITALS: BP 111/82; PULSE 96; RESP 16
--- NOTE | 2018-03-01 14:42 | P.PN ---
Subjective Progress Note Date: 03/01/18 This is follow-up visits for this 37-year-old female with a chronic history of low back pain, diagnosed with lumbar spondylosis ,we have done radiofrequency ablation of the median branch lumbar area, last visit patient was examined and evaluated regarding her right shoulder pain, and x-ray of the right shoulder was ordered and she is here today for follow-up visit and evaluation, regarding her shoulder pain, he denies any motor or sensory deficit, is able to use her upper extremities without any difficulty, she continued to use Neurontin 800 mg 3 times a day prescription given by her psychiatrist, and she is getting from her last prescription for baclofen 10 mg when necessary for muscle spasm, and Motrin 800 mg when necessary, lidocaine 4% ointment to be applied to the right shoulder or low back area as needed Objective - Vital Signs Vital signs: Vital Signs Temp Pulse 96 03/01/18 13:48 Resp 16 03/01/18 13:48 BP 111/82 03/01/18 13:48 Pulse Ox Intake & Output 02/28/18 03/01/18 03/01/18 18:59 06:59 18:59 Weight 68.039 kg - Exam Physical Examinations : 1-Constitutiona : Cooperative , not in acute distress . 2-HEENT : nech ; supple , no Lymphadenopathy , normal thyroid size . eyes : no ptosis , no icterus, no photophobia . ENT : normal of hearing , normal oropharynx , no Thrush . 3- Respiratory : Chest clear to auscultations Bilaterally , no wheezing , no Rhonchi . 4- Cardiovascular : regular rate and rhythem , S1 , S2 , no S3 , no S4. 5- Gastrointestinal : abdomen soft no tenderness , bowel sounds , no organomegally . 6- Genitourinary : Defferred . 7- neurologic : Cranial nerve II to XII intact , no focal neurological deffecit . 8-psychatric : alert , oriented X 3 , appropriate affect , intact judgment and insight . 9-Lymphatic : no Lymphadenopathy . 10- musculoskeltal : cervical spine= motor stregnth in the deltoid and biceps, motor stregnth biceps and the wrist extensors (C6) . motor stregnth in the triceps muscle . deep tendon reflexes normal at the biceps Right , Left normal at the brachioradia Right , Left Normal at the triceps Right ,Left Active and passive movement of the right shoulder associated with pain Lumber spine = normal moter stegnth lower extremities ,thigh and legs .5/5 X-ray of the right shoulder= normal recommend MRI Assessment and Plan Plan: Assessment and plan= 1-chronic low back pains significantly to lumbar spondylosis, pain improved after radiofrequency ablation of the lumbar medial branch 2-right shoulder arthralgia , the patient could benefit from right glenohumeral steroid injection with fluoroscopy guidance If she continued to have pain after the injection and we will consider ordering an MRI of the right shoulder, and referred to the orthopedic surgeon. 3-prescription refill for lidocaine 4% ointment , and she already had a prescription for Motrin 800 3 times a day, baclofen 10 every 8 hours when necessary Time with Patient: Less than 30
== END | disposition home or self-care (01) ==
LOC: PNWHC3 13:07
PROVIDERS: ATTEND Specialist
DX: G89.29 Other chronic pain (principal); M54.5 Low back pain; M47.816 Spondylosis without myelopathy or radiculopathy, lumbar region; M25.511 Pain in right shoulder; Z79.1 Long term (current) use of non-steroidal anti-inflammatories (NSAID); Z79.891 Long term (current) use of opiate analgesic; Z79.52 Long term (current) use of systemic steroids
CPT/HCPCS: 99211

== ENCOUNTER 2018-03-28 09:12 | Day surgery (SDC) | payer MEDICARE, OTHER ==
[2018-03-22 09:00] VITALS: BMI 23.5
[2018-03-28 09:49] VITALS: RESP 18; TEMP 97.7
[2018-03-28] MEDS ORDERED: LIDOCAINE 1% 20 ML VIAL (10MG/ML) FOR IV START INTRADERMA ONE (09:51)
[2018-03-28] MEDS ORDERED: LACTATED RINGERS 1,000 ML IV ONE (09:52)
[2018-03-28] MEDS ORDERED: LACTATED RINGERS 1,000 ML IV SCH (10:00)
[2018-03-28 10:30] LABS: Glucose,Whole Blood 93 mg/dL (75-99)
[2018-03-28] MEDS ORDERED: IV FLUID CONTINUATION 1,000 ML IV ONE (10:50)
--- NOTE | 2018-03-28 10:55 | P.PCN ---
Date of Procedure: 03/28/18 Surgeon: Tony Darby Pathology: none sent Condition: stable Disposition: PACU Description of Procedure: PREOPERATIVE DIAGNOSIS: glenohumeral joint osteoarthritis POSTOPERATIVE DIAGNOSIS: glenohumeral joint osteoarthritis PROCEDURE: right glenohumeral joint injection under fluorscopy ANESTHESIA: Local anesthesia with 1% lidocaine and IV sedation with Versed/ fentanyl EBL: Minimal PROCEDURE INDICATION: The patient has a history of right shoulder pain secondary to OA unresponsive to more conservative treatments. No use of blood thinners. PROCEDURE DESCRIPTION: The patient was seen and identified in the preoperative area. Risks, benefits, complications, and alternatives were discussed with the patient (including but not limited to incomplete pain relief, bleeding, infection, nerve damage, and allergies to medications), the patient agreed to proceed with the procedure and signed the consent after all questions were answered. Patient was taken to the OR and time out was completed to verify proper patient, position, laterality of pain, and allergies. Pt was placed in the prone position. The right shoulder area was prepped and draped in the usual sterile fashion. Vital signs were closely monitored during the procedure. Conscious sedation was used during the procedure to decrease patients anxiety. Using AP fluoroscopy, the right glenohumeral joint was identified and the overlying skin and deeper tissues were localized with 1% lidocaine. Subsequently , a 22-gauge, 3.5-inch spinal needle was advanced under fluoroscopic guidance into the joint space. Once in the space, 7 ml of a solution containing 6 ml of 0.5% preservative-free ropivacaine and 40 mg Kenalog was injected after negative aspiration and in the absence of paresthesia or resistance to injection. [place] were withdrawn intact . Skin was cleansed. Bandages were applied. COMPLICATIONS: None. DISPOSITION/PLAN: The patient taken to the recovery area after the procedure in a stable condition for observation. Patient was reexamined prior to discharge and there were no issues. Patient was discharged home, accompanied by an adult, after meeting discharged criteria. Discharge instructions were give to the patient by the staff. Patient was specifically instructed not to drive today and to rest for the rest of the day. Patient will follow up in clinic in 4-6 weeks for further management.
--- NOTE | 2018-03-28 11:03 | FL ---
EXAMINATION TYPE: FL guided pain mgmt statistic DATE OF EXAM: 03/28/2018 HISTORY: Flouroscopy time 6 seconds of fluoroscopy provided. IMPRESSION: 1. Fluoroscopy time.
[2018-03-28 11:06] VITALS: BP 120/76; PULSE 90
== END 2018-03-28 11:33 | disposition home or self-care (01) ==
LOC: ORPAIN 09:12
PROVIDERS: ATTEND Anesthesiology
DX: G89.29 Other chronic pain (principal); M19.011 Primary osteoarthritis, right shoulder; M62.838 Other muscle spasm; M47.816 Spondylosis without myelopathy or radiculopathy, lumbar region; Z88.6 Allergy status to analgesic agent; Z88.8 Allergy status to other drugs, medicaments and biological substances; Z79.899 Other long term (current) drug therapy
CPT/HCPCS: 81025; 20610; J2250; J3301; J3010; Q9966

== ENCOUNTER → 2018-05-29 | Outpatient (CLI) | payer MEDICARE, OTHER ==
[2018-05-29 12:50] VITALS: BP 133/86; PULSE 93; RESP 18
[2018-05-29 12:54] VITALS: TEMP 98
--- NOTE | 2018-05-29 13:11 | P.PN ---
Subjective Progress Note Date: 05/29/18 This is a 37-year-old female with chronic lower back pain. This patient lifted a heavy object over the weekend and her pain has gotten worse since then. She feels numbness in her left leg in no specific radicular distribution. She had an injection on the right shoulder joint which gave her 1 month of pain relief. In addition to above, 13-point review of systems is also negative for chest pain , shortness of breath, changes in vision, changes in hearing, new onset weakness , abdominal pain, diarrhea, extreme fatigue, malaise, fever, skin changes, homicidal or suicidal ideation, or bowel or bladder incontinence. Vital Signs: Reviewed in EMR Gen: WDWN, AAOx3, NAD HEENT: NCAT, EOMI, hearing grossly normal Pulm: resp unlabored Neck: supple, trachea midline Neuro exam of the lower extremities showed normal and symmetrical muscle strength and normal and symmetrical deep tendon reflexes Simeon's test negative bilaterally Internal and external rotation of the hip joints did not elicit hip pain She has significant tenderness in the lumbar paravertebral area bilaterally Straight leg raising test negative bilaterally Facet loading test is positive She has normal range of motion of the right shoulder Neuro: CN II-XII grossly intact Imaging: Reviewed in EMR Assessment: 1. lumbar spondylosis without myelopathy 2. Lumbar radiculopathy 3. Right shoulder arthrosis Plan: 1. Explanation: Opioid and psychological risk scores were reviewed. Diagnoses , prognoses, and multiple treatment options including but not limited to physical therapy, interventional therapies, adjuvant medical therapies, narcotic medication therapies, and surgery were discussed with the patient and all questions were answered to the patient's satisfaction. 2. Opioid agreement: no opioids prescribed today 3. Counseling: The patient was counseled extensively on BODY MASS INDEX, EXERCISE. Specifically, the patient was instructed regarding the importance of weight control, and exercise in the context of both chronic pain and overall health. 4. Procedures: This exacerbation started recently, so we'll do conservative management for 2 weeks and I there is no improvement then we'll plan on doing lumbar epidural steroid injection 5. Consultations: None 6. Investigations: None 7. Medications: The patient still has enough baclofen, Neurontin, and Motrin but she needs prescription for lidocaine 4% ointment and I'll provide her with that with 2 refills 8. Disposition: The patient will call us in 2 weeks, otherwise we will see her in 2 months PQRS measures: 1-Patient's medications are documented in the chart. 2-Tobacco use is positive/negative, counseling NOT given 3-Patient has not had a pneumococcal vaccine. 4-Advanced care planning discussed, patient unable to give. 5-Opioid contract signed with the patient. 6-Pain positive, follow-up visit or procedure scheduled 7-Patient's blood pressure measured and documented, and patient will follow up with the primary care due to hypertension. 8-Patient's weight was measured, and body mass index ABOVE the normal limits, and counseling was done. Patient instructed to follow up with PCP. 9-Patient WAS NOT identified as an unhealthy alcohol user. Objective - Vital Signs Vital signs: Vital Signs Temp 98 F 05/29/18 12:50 Pulse 93 05/29/18 12:50 Resp 18 05/29/18 12:50 BP 133/86 05/29/18 12:50 Pulse Ox Intake & Output 05/28/18 05/29/18 05/29/18 18:59 06:59 18:59 Weight 69.4 kg
== END | disposition home or self-care (01) ==
LOC: PNWHC3 12:28
PROVIDERS: ATTEND Anesthesiology
DX: G89.29 Other chronic pain (principal); M54.5 Low back pain; M47.26 Other spondylosis with radiculopathy, lumbar region; M19.011 Primary osteoarthritis, right shoulder
CPT/HCPCS: 99211

== ENCOUNTER 2018-07-04 09:38 | Day surgery (SDC) | payer MEDICARE, OTHER ==
[2018-06-29 11:44] VITALS: BMI 24.4
[2018-07-04 09:49] VITALS: TEMP 97.7
[2018-07-04] MEDS ORDERED: LIDOCAINE 1% 20 ML VIAL (10MG/ML) FOR IV START INTRADERMA ONE (09:51)
[2018-07-04] MEDS ORDERED: IV FLUID CONTINUATION 1,000 ML IV ONE ×2 (10:19)
[2018-07-04 10:43] VITALS: BP 117/81; PULSE 87; RESP 18
--- NOTE | 2018-07-04 10:54 | FL ---
Fluoroscopy HISTORY: Pain 1 seconds fluoroscopy time supplied to the referring clinician. 1 intraoperative C-arm images docume nt the procedure. See dictated report from anesthesia.
--- NOTE | 2018-07-25 13:59 | P.PCN ---
Date of Procedure: 07/04/18 Surgeon: Eulogio Hernandez Description of Procedure: PREOPERATIVE DIAGNOSIS: Lumbar spondylosis, bilateral lumbar radicular pain POSTOPERATIVE DIAGNOSIS: Same PROCEDURE Lumbar epidural steroid injection under fluoroscopic guidance at the L5-S1 level. ANESTHESIA: Local with 1% lidocaine 3 ml and IV sedation with Versed 2 mg 100 g of fentanyl INDICATION: []. PROCEDURE DESCRIPTION / TECHNIQUE: The patient was seen and identified in the preoperative area. Risks, benefits , complications including but not limited to infections ,bleeding ,allergic reaction to the medications ,nerve damage and not complete pain relief , and alternatives were discussed with the patient. The patient agreed to proceed with the procedure and signed the consent. IV was started, and vital signs were stable. Patient was taken to the OR and time out was completed. The patient was placed in the prone position on procedure table and a pillow was placed under the abdomen to reduce lumbar lordosis. The lumbosacral area was prepped and draped in the usual sterile fashion.ere closely monitored during the procedure. Conscious sedation was used during the procedure to decrease patients anxiety. Vital signs was monitered during the entire procedure. Using anterior-posterior fluoroscopy, the L5-S1 interlaminar space was identified and the skin over this site was marked and then infiltrated with 1% lidocaine subcutaneously. Subsequently, a 20-gauge Tuohy epidural needle was inserted and advanced toward the epidural space using the Loss of resistance technique and guided by AP and lateral fluoroscopy. The correct needle position in the epidural space was verified with the injection of contrast and observing an excellent epidurogram with the epidural spread of the dye, after negative aspiration for blood and CSF and in the absence of paresthesias. Again after negative aspiration, a 6 ml mixture containing 80 mg depomedrol was injected and a washout of epidurogram was seen. Needle was withdrawn intact, skin was cleansed, and bandages were applied. COMPLICATIONS: None DISPOSITION / PLANS: The patient was placed in a supine position and transferred to the recovery area in a stable condition for observation. There was no evidence of lower extremity motor or sensory deficit after the procedure. Patient was discharged from the recovery room after meeting discharge criteria. Home discharge instructions were given to the patient by the staff. The patient was reexamined prior to discharge. The patient will schedule a follow up in the clinic in 2-4 weeks.
== END 2018-07-04 10:50 | disposition home or self-care (01) ==
LOC: ORPAIN 09:38
PROVIDERS: ATTEND Pain Medicine Pain Medicine
DX: M47.26 Other spondylosis with radiculopathy, lumbar region (principal); E16.2 Hypoglycemia, unspecified; Z88.5 Allergy status to narcotic agent; Z88.8 Allergy status to other drugs, medicaments and biological substances
CPT/HCPCS: 81025; 62323; J2250; J1030; J3010

== ENCOUNTER → 2019-01-23 | Outpatient (CLI) | payer MEDICARE, OTHER ==
[2019-01-23 13:03] VITALS: BP 130/78; PULSE 87; RESP 18
--- NOTE | 2019-01-23 13:22 | P.PAINPG ---
Subjective Progress Note Date: 01/23/19 This is a 38-year-old female who presents today with a chief complaint of low back pain with radicular symptoms into the right leg. She reports she's had the symptoms for many years and most recently had a lumbar radiofrequency ablation done about one year ago. She reports she had about 90% relief and has not been to our clinic since then. She reports the pain started come back now. She reports pain across the low back which is worse with extension and flexion of the lumbar spine. She feels that it's a worse with standing for long periods of time or bending over for extended period of time. She feels she sometimes has numbness and tingling shooting into the right leg and into her foot. She is unsure of the associated with her back pain. She reports that it was gone after having the ablation done about a year ago. At this point she does not use any pain medications. She uses baclofen only as needed. She was given a prescription for baclofen about one year ago distress now. She also uses lidocaine 4% cream for myofascial pain syndrome Objective - Vital Signs Vital signs: Vital Signs Temp Pulse 87 01/23/19 12:56 Resp 18 01/23/19 12:56 BP 130/78 01/23/19 12:56 Pulse Ox - Exam General: Awake and alert oriented 3 no distress Respiratory exam: No audible wheezing no accessory muscle usage Cardiovascular exam: regular rate, palpable bilateral pulses, no lower extremity edema Abdominal exam: No distention nontender to palpation Cervical spine: Normal alignment, Spurling's negative, facet loading negative, tender to palpation over the right trapezius muscle Lumbar spine: Loss of lumbar lordosis, normal alignment, tender to palpation over bilateral paraspinal muscles, facet loading is positive bilaterally. Straight leg raise is negative. Sacroiliac joints: Nontender to palpation, ALIX is negative, Gaenselon negative Neuro exam: Normal sensation in bilateral upper extremities, deep tendon reflexes are 2+ bilateral upper extremities. Normal sensation in bilateral lower extremities. Deep tendon reflexes are 2+ in lower extremities Psych exam: Cooperative, appropriate mood Assessment and Plan Assessment: #1 lumbar spondylosis without myelopathy #2 myofascial pain syndrome Plan: I feel that she would benefit from a repeat of the lumbar radiofrequency ablation of the L4 5 and L5-S1 levels and we will start with the right side first. I also feel that baclofen has been successful for her as needed we will refill that prescription. I will also give her prescription for lidocaine 4% ointment or cream to use for myofascial pain syndrome as needed. PQRS Measure Charge Sheet Measure #130: Documentation of Current Meds in Medical Chart: Patient's medications documented in chart Measure #226: Tobacco Use: Screen & Cessation Intervention: Pt not a tobacco user Measure #111: Pneumonia Vaccination: Pneumococcal vaccine NOT administered or previously given Measure #47: Advance Care Plan: Advance care planning discussed & documented, plan or surrogate given Measure #412: Opioid Treatment Agreement: No documentation of signed opioid treatment agreement Measure #408: Opioid Therapy Follow-up Evaluation: Patient had NO f/u eval minimum every 3 months during opioid therapy Measure #317: Preventitive Care & Scrn High Bld Press & F/U: Normal blood pressure, f/u not required Measure #128: Body Mass Index (BMI) Screening & Follow-up: BMI documented within normal parameters Measure #131: Pain Assessment & Follow-up: Pain positive & plan documented, Follow-up scheduled Measure #431: Unhealthy Alcohol Use Preventative Care & Scrn: Patient not identified as an unhealthy alcohol user PQRS Narrative: Smoking Status Former smoker Do You Want the Pneumonia No Vaccine AT THIS TIME? Blood Pressure 130/78 Pain Intensity [Bilateral 4 Shoulder] Pain Intensity [Lower Back] 6 Hx Alcohol Use (MH) No Home Medications: Ambulatory Orders Albuterol Inhaler [Ventolin Hfa Inhaler] 2 puff INHALATION RT-BID PRN 01/19/17 Ondansetron [Zofran] 4 mg PO TID PRN 01/19/17 Prazosin HCl 6 mg PO HS 01/19/17 Biotin 5,000 mcg PO DAILY 06/13/17 Cholecalciferol [Vitamin D3] 5,000 unit PO DAILY 06/13/17 QUEtiapine [SEROquel] 50 mg PO HS 06/13/17 Sertraline HCl [Zoloft] 200 mg PO QAM 06/13/17 hydrOXYzine PAMOATE [Vistaril] 50 mg PO TID PRN 06/13/17 Diclofenac Sodium [Voltaren Gel] 1 applicate TOPICAL DIRECTED 06/19/17 Menthol [Icy Hot] 1 patch TOPICAL DAILY PRN 06/19/17 Cyanocobalamin (Vitamin B-12) [Vitamin B12] 5,000 mcg PO DAILY 06/20/17 Loratadine [Claritin] 10 mg PO DAILY 09/07/17 Omeprazole 20 mg PO DAILY 09/07/17 Gabapentin 800 mg PO TID #90 tablet 01/04/18 Ibuprofen [Motrin] 800 mg PO TID PRN #90 tab 01/04/18 Baclofen 10 mg PO TID PRN 03/01/18 Lidocaine 4% Cream [Lmx 4] 1 applic TOPICAL BID 03/01/18 Budesonide/Formoterol Fumarate [Symbicort 160-4.5 Mcg Inhaler] 2 puff INHALATION BID 03/22/18 Controlled Substance Measures - Controlled Substance Measures Is patient prescribed a controlled substance at discharge?: No
== END ==
LOC: PNWHC3 12:44
PROVIDERS: ATTEND Hospitalist
DX: M47.816 Spondylosis without myelopathy or radiculopathy, lumbar region (principal); M79.18 Myalgia, other site; Z87.891 Personal history of nicotine dependence
CPT/HCPCS: 99211

== ENCOUNTER 2019-02-05 08:08 | Day surgery (SDC) | payer MEDICARE, OTHER ==
[2019-01-30 15:53] VITALS: BMI 26.3
[2019-02-05] MEDS ORDERED: LACTATED RINGERS 1,000 ML IV SCH (08:44)
[2019-02-05 08:52] VITALS: RESP 16; TEMP 98.2
[2019-02-05] MEDS ORDERED: LIDOCAINE 1% 20 ML VIAL (10MG/ML) FOR IV START INTRADERMA ONE (09:08)
--- NOTE | 2019-02-05 10:07 | P.PCN ---
Date of Procedure: 02/05/19 Procedure(s) Performed: PREOPERATIVE DIAGNOSIS: 1-Lumbar Spondylosis with Facet Arthropathy without myelopathy. POSTOPERATIVE DIAGNOSIS: 1- Lumbar Spondylosis with Facet Arthropathy without myelopathy. PROCEDURES : Right Radiofrequency thermocoagulation, L3-L4, L4-L5, and L5-S1 medial branch, with fluoroscopic guidance ANESTHESIA: Moderate sedation with intravenous versed 4 mg and fentaneyl 100 mcg, and local infiltration with Ropivacaine 0.5 % . EBL: Minimal PROCEDURE INDICATION: The patient with low back pain secondary to lumbar facet arthropathy who had more than 50% relief of her pain with previous diagnostic lumbar medial branch block with bupivacaine. PROCEDURE DESCRIPTION / TECHNIQUE: The patient was seen and identified in the preoperative area. Risks, benefits, complications, including but not limited to risk of infection ,bleeding , allergic reactions to the medications and no complete pain releife , and alternatives were discussed with the patient, the patient agreed to proceed with the procedure and signed the consent. IV was started. Vital signs remained stable throughout the procedure. Patient was taken to the OR and time out was completed. The patient was placed in the prone position on the procedure table. The lumber area was prepped and draped in the usual sterile fashion. . Vital signs were closely monitored during the procedure .IV sedation was used during the procedure to decrease patients anxiety. Using AP and then oblique fluoroscopy, the ``eye of the Rohit dog corresponding to the connection between the superior and transverse articular processes of right L3, L4, and L5 were identified, marked, and localized with 1% lidocaine. Subsequently, a 18 [id number] radiofrequency cannula with a 10- mm active tip was advanced guided by fluoroscopy to each of the``eyes of the Rohit dog at right L3, L4, and L5. Each site then underwent sensory testing at 50 Hz and 0 to 1 volt and motor testing at 2.5 Hz and 0 to 3 volt with local stimulation, but no radicular symptoms down the legs. Thereafter the right L3-4, L4-5, and L5-S1 sites underwent radiofrequency thermocoagulation at 80 degrees celsius for 90 seconds after injecting 0.5 ml of PF Ropivacaine 1ml, then after the thermocoagulation done , 1 ml of the block solution containing Depo-Medrol 40 mg and 3 ml of Ropivacaine 0.5% was injected at the right L3-4 , L4-5 , and L5-S1, levels after negative aspiration of CSF and blood and with no paresthesias. Cannulas were retracted while injecting lidocaine 1% until the needle is out. At the end of the procedure, the skin was cleansed and bandages were applied. COMPLICATIONS: No acute complications. DISPOSITION / PLANS: The patient was placed in a supine position and transferred to the recovery area in a stable condition for observation and was discharged from the recovery room after meeting discharge criteria. Home discharge instructions given to the patient by the staff. The patient was reexamined prior to discharge. The patient will schedule a follow up in the clinic in 2-4 weeks.
[2019-02-05] MEDS ORDERED: IV FLUID CONTINUATION 1,000 ML IV ONE (10:24)
[2019-02-05 10:28] VITALS: BP 138/88; PULSE 80
--- NOTE | 2019-02-05 10:31 | FL ---
EXAMINATION TYPE: FL guided pain mgmt statistic DATE OF EXAM: 02/05/2019 HISTORY: Flouroscopy time 12 seconds of fluoroscopy provided. IMPRESSION: 1. Fluoroscopy time.
== END 2019-02-05 10:33 | disposition home or self-care (01) ==
LOC: ORPAIN 08:08
PROVIDERS: ATTEND Specialist
DX: M47.816 Spondylosis without myelopathy or radiculopathy, lumbar region (principal); Z88.5 Allergy status to narcotic agent; Z88.8 Allergy status to other drugs, medicaments and biological substances
CPT/HCPCS: 64636 ×2; 64635; J2250; J3010; 99152; 99153

== ENCOUNTER 2019-02-19 07:45 | Day surgery (SDC) | payer MEDICARE, OTHER ==
[2019-02-15 10:13] VITALS: BMI 26.9
[2019-02-19] MEDS ORDERED: LIDOCAINE 1% 20 ML VIAL (10MG/ML) FOR IV START INTRADERMA ONE (08:30)
[2019-02-19 08:40] VITALS: TEMP 98
--- NOTE | 2019-02-19 09:21 | P.PCN ---
Date of Procedure: 02/19/19 Procedure(s) Performed: PREOPERATIVE DIAGNOSIS: 1-Lumbar Spondylosis with Facet Arthropathy without myelopathy. POSTOPERATIVE DIAGNOSIS: 1- Lumbar Spondylosis with Facet Arthropathy without myelopathy. PROCEDURES : Left Radiofrequency thermocoagulation, L3-L4, L4-L5, and L5-S1 medial branch, with fluoroscopic guidance ANESTHESIA: Moderate sedation with intravenous versed 4 mg and fentaneyl 100 mcg, and local infiltration with Ropivacaine 0.5 % . EBL: Minimal PROCEDURE INDICATION: The patient with low back pain secondary to lumbar facet arthropathy who had more than 50% relief of her pain with previous diagnostic lumbar medial branch block with bupivacaine. PROCEDURE DESCRIPTION / TECHNIQUE: The patient was seen and identified in the preoperative area. Risks, benefits, complications, including but not limited to risk of infection ,bleeding , allergic reactions to the medications and no complete pain releife , and alternatives were discussed with the patient, the patient agreed to proceed with the procedure and signed the consent. IV was started. Vital signs remained stable throughout the procedure. Patient was taken to the OR and time out was completed. The patient was placed in the prone position on the procedure table. The lumber area was prepped and draped in the usual sterile fashion. . Vital signs were closely monitored during the procedure .IV sedation was used during the procedure to decrease patients anxiety. Using AP and then oblique fluoroscopy, the ``eye of the Rohit dog corresponding to the connection between the superior and transverse articular processes of Left L3, L4, and L5 were identified, marked, and localized with 1% lidocaine. Subsequently, a 18 [id number] radiofrequency cannula with a 10-mm active tip was advanced guided by fluoroscopy to each of the``eyes of the Rohit dog at Left L3, L4, and L5. Each site then underwent sensory testing at 50 Hz and 0 to 1 volt and motor testing at 2.5 Hz and 0 to 3 volt with local stimulation, but no radicular symptoms down the legs. Thereafter the Left L3- 4, L4-5, and L5-S1 sites underwent radiofrequency thermocoagulation at 80 degrees celsius for 90 seconds after injecting 0.5 ml of PF Ropivacaine 1ml, then after the thermocoagulation done , 1 ml of the block solution containing Depo-Medrol 40 mg and 3 ml of Ropivacaine 0.5% was injected at the Left L3-4 , L4-5 , and L5-S1, levels after negative aspiration of CSF and blood and with no paresthesias. Cannulas were retracted while injecting lidocaine 1% until the needle is out. At the end of the procedure, the skin was cleansed and bandages were applied. COMPLICATIONS: No acute complications. DISPOSITION / PLANS: The patient was placed in a supine position and transferred to the recovery area in a stable condition for observation and was discharged from the recovery room after meeting discharge criteria. Home discharge instructions given to the patient by the staff. The patient was reexamined prior to discharge. The patient will schedule a follow up in the clinic in 2-4 weeks.
[2019-02-19 09:35] VITALS: RESP 16
--- NOTE | 2019-02-19 09:40 | FL ---
EXAMINATION TYPE: FL guided pain mgmt statistic DATE OF EXAM: 02/19/2019 HISTORY: Flouroscopy time 10 seconds of fluoroscopy provided. IMPRESSION: 1. Fluoroscopy time.
[2019-02-19 09:46] VITALS: BP 111/78; PULSE 80
[2019-02-19] MEDS ORDERED: IV FLUID CONTINUATION 1,000 ML IV ONE (09:47)
== END 2019-02-19 09:52 | disposition home or self-care (01) ==
LOC: ORPAIN 07:45
PROVIDERS: ATTEND Specialist
DX: M47.816 Spondylosis without myelopathy or radiculopathy, lumbar region (principal); Z88.5 Allergy status to narcotic agent
CPT/HCPCS: 81025; 64635; 64636 ×2; J2250; J1030; J3010; 99152

== ENCOUNTER → 2019-03-14 | Outpatient (CLI) | payer MEDICARE, OTHER ==
[2019-03-14 13:07] VITALS: BP 111/80; PULSE 97; RESP 17
--- NOTE | 2019-03-14 13:42 | P.PAINPG ---
Subjective Progress Note Date: 03/14/19 This is a follow-up visit for this 38 years old female, a chronic history of severe low back pain she states most with the lumbar spondylosis with lumbar facet arthropathy, recently we have done radiofrequency ablation of the medial branch lumbar area, and she reported that her low back pain improved signi ficantly she is able to function without any pain in the lumbar area, but she reported that she had severe neck pain with radiation to the right upper extremity associated with numbness and tingling sensation, and also she has some shoulder pain, previously we have done right shoulder steroid injection which helped her shoulder pain, but currently she is having severe neck pain associated with numbness tingling sensation in the right upper extremity, she denies any motor or sensory deficit, she had no fever or night sweats which she had no change in the bowel movement or urination Objective - Vital Signs Vital signs: Vital Signs Temp Pulse 97 03/14/19 13:01 Resp 17 03/14/19 13:01 BP 111/80 03/14/19 13:01 Pulse Ox 97 03/14/19 13:01 - Constitutional Constitutional Comment(s): Physical Examinations : -Constitutiona : Cooperative , not in acute distress . -HEENT : nech ; supple , no Lymphadenopathy , normal thyroid size . eyes : no ptosis , no icterus, no photophobia . ENT : normal of hearing , normal oropharynx , no Thrush . - Respiratory : Chest clear to auscultations Bilaterally , no wheezing , no Rhonchi . - Cardiovascula : regular rate and rhythem , S1 , S2 , no S3 , no S4. - Gastrointestina : abdomen soft no tenderness , bowel sounds , no organomegally . - Genitourinary : Defferred . - neurologic : Cranial nerve II to XII intact , no focal neurological deffecit . -psychatric : alert , oriented X 3 , appropriate affect , intact judgment and insight . -Lymphatic : no Lymphadenopathy . - musculoskeltal : Cervical Spine motor stregnth in the deltoid and biceps, normal right side , normal Left side motor stregnth biceps and the wrist extensors normal right side ,normal left side . motor stregnth in the triceps muscle . normal Right side , normal Left side deep tendon reflexes normal at the biceps , normal at Brachioradialis , normal at triceps. cervical facet loading test negative bilaterally. Spurling test positive bilaterally. Neck distraction test positive bilaterally. Amy sign positive bilaterally. Multiple trigger points identified in the suprascapular area bilaterally, trapezius muscle and rhomboid muscles bilaterally Lumber spine moter stegnth lower extremities ,thigh and legs 5/5 Right side , 5/5 Left side Assessment and Plan Plan: Assessment and plan=1- cervical radiculopathy, We'll order MRI of the cervical spine to identify the etiology 2-lumbar spondylosis with lumbar facet arthropathy, pain improved after RFA of the lumbar medial branch She will follow up with the pain clinic in 2 weeks Patient given prescription refill for baclofen 10 mg twice a day dispense 60 with one refill Lidocaine 4% cream applied to the shoulder area twice a day Time with Patient: Less than 30 PQRS Measure Charge Sheet Measure #130: Documentation of Current Meds in Medical Chart: Patient's medications documented in chart Measure #226: Tobacco Use: Screen & Cessation Intervention: Pt screened for tobacco use AND intervention given Measure #111: Pneumonia Vaccination: Pneumococcal vaccine NOT administered or previously given Measure #47: Advance Care Plan: Advance care planning discussed & documented, pt chose/unable to give Measure #412: Opioid Treatment Agreement: No documentation of signed opioid treatment agreement Measure #408: Opioid Therapy Follow-up Evaluation: Patient had NO f/u eval minimum every 3 months during opioid therapy Measure #317: Preventitive Care & Scrn High Bld Press & F/U: Normal blood pressure, f/u not required Measure #128: Body Mass Index (BMI) Screening & Follow-up: BMI documented ABOVE normal parameters - f/u documented Measure #131: Pain Assessment & Follow-up: Pain positive & plan documented, Follow-up scheduled Measure #431: Unhealthy Alcohol Use Preventative Care & Scrn: Patient not identified as an unhealthy alcohol user PQRS Narrative: Smoking Status Former smoker Do You Want the Pneumonia No Vaccine AT THIS TIME? Blood Pressure 111/80 Pain Intensity [Right Neck] 6 Scale Used Numeric (1 - 10) Hx Alcohol Use (MH) No Home Medications: Ambulatory Orders Albuterol Inhaler [Ventolin Hfa Inhaler] 2 puff INHALATION RT-BID PRN 01/19/17 Biotin 5,000 mcg PO DAILY 06/13/17 Cholecalciferol [Vitamin D3] 5,000 unit PO DAILY 06/13/17 Sertraline HCl [Zoloft] 200 mg PO QAM 06/13/17 hydrOXYzine PAMOATE [Vistaril] 50 mg PO BID 06/13/17 Cyanocobalamin (Vitamin B-12) [Vitamin B12] 5,000 mcg PO DAILY 06/20/17 Loratadine [Claritin] 10 mg PO DAILY 09/07/17 Omeprazole 20 mg PO DAILY 09/07/17 Gabapentin 800 mg PO TID #90 tablet 01/04/18 Ibuprofen [Motrin] 800 mg PO TID PRN #90 tab 01/04/18 Baclofen 10 mg PO TID PRN 03/01/18 Lidocaine 4% Cream [Lmx 4] 1 applic TOPICAL BID 03/01/18 Budesonide/Formoterol Fumarate [Symbicort 160-4.5 Mcg Inhaler] 2 puff INHALATION BID 03/22/18 Melatonin 5 mg PO HS 01/23/19 Nicotine 21Mg/24Hr Patch [Habitrol 21Mg/24Hr Patch] 1 each TRANSDERM DAILY 01/30/19 Valerian Root 2,120 mg PO DAILY 01/30/19 Controlled Substance Measures - Controlled Substance Measures Is patient prescribed a controlled substance at discharge?: No
== END ==
LOC: PNWHC3 12:50
PROVIDERS: ATTEND Specialist
DX: M47.26 Other spondylosis with radiculopathy, lumbar region (principal); M46.96 Unspecified inflammatory spondylopathy, lumbar region; M54.12 Radiculopathy, cervical region; Z87.891 Personal history of nicotine dependence; Z79.899 Other long term (current) drug therapy; Z79.891 Long term (current) use of opiate analgesic
CPT/HCPCS: 99211

== ENCOUNTER → 2019-03-25 | Outpatient (CLI) | payer MEDICARE, OTHER ==
--- NOTE | 2019-03-25 14:14 | MR ---
EXAMINATION TYPE: MR cervical spine wo con DATE OF EXAM: 03/25/2019 COMPARISON: None HISTORY: Neck and shoulder pain TECHNIQUE: Multiplanar, multisequence images of the cervical spine were acquired. C2-C3: No evidence for degenerative disc disease. No disc bulge/herniation or protrusion. No Canal stenosis. Foramina are patent bilaterally. C3-C4: No evidence for degenerative disc disease. No disc bulge/herniation or protrusion. No Canal stenosis. Foramina are patent bilaterally. C4-C5: There is a broad-based central and right paracentral disc protrusion. No spinal cord contact. Neural foramina remain patent. C5-C6: There is a broad-based right paracentral and lateral disc herniation resulting in mild anterio r compression of the spinal cord. Severe right-sided foraminal encroachment. Spinal cord contact and impression noted. Left neural foramina patent. C6-C7: No evidence for degenerative disc disease. No disc bulge/herniation or protrusion. No Canal stenosis. Foramina are patent bilaterally. C7-T1: No evidence for degenerative disc disease. No disc bulge/herniation or protrusion. No Canal stenosis. Foramina are patent bilaterally. Cervical segments are intact. There is normal alignment. Cervical spinal cord is of normal signal. Craniovertebral junction relationships are within normal limits. IMPRESSION: 1. Broad-based right paracentral and lateral disc herniation C5-C6 results in anterior compression th e spinal cord and severe right-sided foraminal encroachment. 2. Right paracentral and central disc protrusion C4-C5. No spinal cord contact or neural foraminal en croachment.
== END | disposition home or self-care (01) ==
LOC: RADMRIMAIN 12:59
PROVIDERS: ATTEND Specialist
DX: M50.121 Cervical disc disorder at C4-C5 level with radiculopathy (principal); M50.022 Cervical disc disorder at C5-C6 level with myelopathy
CPT/HCPCS: 72141

== ENCOUNTER → 2019-03-28 | Outpatient (CLI) | payer MEDICARE, OTHER ==
[2019-03-28 12:13] VITALS: BP 121/84; PULSE 93; RESP 16
--- NOTE | 2019-03-28 12:41 | P.PN ---
Subjective Progress Note Date: 03/28/19 Jackelin is a pleasant 38-year-old female presented today for evaluation of her neck pain. She recently had an MRI done a few days ago. She has symptoms of right- sided radiculopathy. She has pain and neck which extends into her right shoulder and her right upper extremity. The pain associated numbness and tingling stops at about the elbow is mostly over the posterior aspect. She feels that the pain causes her some weakness in the right arm. She denies any numbness tingling or burning sensation beyond the elbow. She denies any reps strength weakness. Denies any symptoms in her left arm. Denies any lower extremity weakness or any bowel or bladder incontinence. MRI was reviewed and images were reviewed with the patient. She has a significant C5-C6 disc herniation which is causing significant neuroforaminal stenosis at that level. Objective - Vital Signs Vital signs: Vital Signs Temp Pulse 93 03/28/19 12:05 Resp 16 03/28/19 12:05 BP 121/84 03/28/19 12:05 Pulse Ox Intake & Output 03/27/19 03/28/19 03/28/19 18:59 06:59 18:59 Weight 73.936 kg - Exam PHYSICAL EXAM: Constitutional: Awake and alert no distress Cardiovascular exam: Regular rate, no lower extremity edema, palpable pulses bilaterally Respiratory exam: No audible wheezing, no accessory muscle usage Abdominal exam: Soft nontender Muscular skeletal exam: - Cervical spine: Nontender palpation bilaterally. Spurling's test is positive on the right. Spurling's is negative on the left. There is limited sidebending to the right. Extension and flexion range of motion is normal. Lackey's is negative. Information And Referral Director strength is 5 out of 5 bilaterally - Lumbar spine: Preserved lumbar lordosis. No changes in skin. Nontender palpation bilateral. Patient has full range of motion in flexion and extension as well as lateral sidebending. Straight leg raise is negative. Neuro exam: Normal sensation bilateral upper and lower extremities. Deep tendon reflexes are decreased in the right triceps, brachial radialis and biceps tendon reflexes are normal. Left arm deep tendon reflexes are normal Psychiatric exam: Cooperative, good insight Assessment and Plan Assessment: #1 cervical radiculopathy #2 lumbar spondylosis without myelopathy Plan: I discussed MRI findings with the patient will move forward with a cervical epidural steroid injection. Patient would like to have sedation for the procedure
== END ==
LOC: PNWHC3 11:55
PROVIDERS: ATTEND Hospitalist
DX: M54.12 Radiculopathy, cervical region (principal); M47.816 Spondylosis without myelopathy or radiculopathy, lumbar region
CPT/HCPCS: 99211

== ENCOUNTER 2019-04-03 08:04 | Day surgery (SDC) | payer MEDICARE ==
[2019-04-01 10:04] VITALS: BMI 26.9
[2019-04-03 08:27] VITALS: RESP 16; TEMP 97
--- NOTE | 2019-04-03 08:43 | P.PCN ---
Date of Procedure: 04/03/19 Surgeon: Asif Persaud Pathology: none sent Condition: stable Disposition: PACU Description of Procedure: PROCEDURE 1. Cervical epidural steroid injection under fluoroscopic guidance, C7-T1 Rt paramedian approach. 2. Cervical epidurogram. : PREOPERATIVE DIAGNOSIS: Cervical radiculopathy, cervical spondylosis without myelopathy POSTOPERATIVE DIAGNOSIS: : Same as above ANESTHESIA: Local anesthesia with 1% lidocaine and IV moderate conscious sedation with Versed and Fentanyl . EBL 0 PROCEDURE INDICATION: The patient with neck pain and radiculopathy unresponsive to conservative treatment consents for procedure. PROCEDURE DESCRIPTION / TECHNIQUE: The patient was seen and identified in the preoperative area. Risks, benefits, complications, including but not limited to infections ,bleeding , allergic reactions to the medications ,and not complete pain relief, and alternatives were discussed with the patient, the patient agreed to proceed with the procedure and signed the consent. Patient was taken to the OR and time out was completed. The patient was placed in the prone position on the procedure table. A pillow was placed under the patients chest to increase the flexion of the cervical spine . The cervical area was prepped and draped in the usual sterile fashion. Vital signs were closely monitored during the procedure. Conscious sedation was used during the procedure to decrease patients anxiety. Using anterior-posterior fluoroscopy, the C7-T1 interlaminar space was identified and the skin over this site was marked and then infiltrated with 1% lidocaine subcutaneously. Subsequently, a 20-gauge 3-1/2-inch Tuohy epidural needle was inserted and advanced toward the epidural space by means of loss of resistance to air technique and guided by AP and lateral fluoroscopy. The needle tip contacted the lamina of T1 vertebra first, then it was walked off bone and into the epidural space using the loss of to air and fluoroscopic guidance to identify the epidural space. The correct needle position in the epidural space was verified with the injection of 1 mL of the water soluble contrast dye Isovue and observing an excellent epidurogram with the epidural spread of the dye, after negative aspiration for blood and CSF and in the absence of paresthesias. Again after negative aspiration, a 5 ml mixture containing 10 mg of Decadron and 4 ml of preservative free Normal Saline solution was injected and a washout of epidurogram was seen. Needle was withdrawn intact, skin was cleansed, and bandages were applied.
[2019-04-03] MEDS ORDERED: IV FLUID CONTINUATION 850 ML IV ONE (08:53)
[2019-04-03 09:04] VITALS: BP 127/86; PULSE 76
--- NOTE | 2019-04-03 09:05 | FL ---
EXAMINATION TYPE: FL guided pain mgmt statistic DATE OF EXAM: 04/03/2019 HISTORY: Flouroscopy time 4 seconds of fluoroscopy provided. IMPRESSION: 1. Fluoroscopy time.
== END 2019-04-03 09:15 | disposition home or self-care (01) ==
LOC: ORPAIN 08:04
PROVIDERS: ATTEND Anesthesiology
DX: M47.22 Other spondylosis with radiculopathy, cervical region (principal)
CPT/HCPCS: 62321; 81025

== ENCOUNTER 2019-04-17 07:55 | Day surgery (SDC) | payer MEDICARE ==
[2019-04-15 10:57] VITALS: BMI 26.6
[2019-04-17] MEDS ORDERED: LACTATED RINGERS 1,000 ML IV SCH (08:15)
[2019-04-17 08:23] VITALS: RESP 16; TEMP 97.7
[2019-04-17] MEDS ORDERED: LIDOCAINE 1% 20 ML VIAL (10MG/ML) FOR IV START INTRADERMA ONE (08:27)
--- NOTE | 2019-04-17 09:13 | P.PCN ---
Date of Procedure: 04/17/19 Description of Procedure: PREOPERATIVE DIAGNOSIS: Cervical radiculopathy Cervical degenerative disc disease POSTOPERATIVE DIAGNOSIS: Cervical radiculopathy Cervical degenerative disc disease PROCEDURE Cervical Epidural steroid injection under fluoroscopic guidance at the C7-T1 interspace. ANESTHESIA: Local with 1% lidocaine 3 ml and IV sedation with Versed 2 mg and 100 g of fentanyl EBL: Minimal PROCEDURE INDICATION: The patient with cervical radicular symptoms unresponsive to conservative treatment. This is her second cervical epidural steroid injection. She reports significant relief of her symptoms from her first injection.. PROCEDURE DESCRIPTION / TECHNIQUE: The patient was seen and identified in the preoperative area. Risks, benefits, complications including but not limited to infections ,bleeding ,allergic reaction to the medications ,nerve damage and incomplete pain relief, and alternatives were discussed with the patient. The patient agreed to proceed with the procedure and signed the consent. IV was started, and vital signs were stable. Patient was taken to the OR and time out was completed. The patient was placed in the prone position on procedure table and a pillow was placed under the chest area.. The cervical area was prepped and draped in the usual sterile fashion. Conscious sedation was used during the procedure to decrease patients anxiety. Vital signs was monitered during the entire procedure. Using anterior-posterior fluoroscopy, the C7-T1 interlaminar space was identified and the skin over this site was marked and then infiltrated with 1% lidocaine subcutaneously. Subsequently, a 20-gauge Tuohy epidural needle was inserted and advanced toward the epidural space using the loss of resistance technique and guided by AP and lateral fluoroscopy. The correct needle position in the epidural space was verified. After negative aspiration for blood and CSF and in the absence of paresthesias. After negative aspiration, a 4 ml mixture containing 80 mg of depomedrol was injected. Needle was withdrawn intact, skin was cleansed, and bandages were applied. COMPLICATIONS: None DISPOSITION / PLANS: The patient was placed in a supine position and transferred to the recovery area in a stable condition for observation. There was no evidence of lower extremity motor or sensory deficit after the procedure. Patient was discharged from the recovery room after meeting discharge criteria. Home discharge instructions were given to the patient by the staff. The patient was reexamined prior to discharge. The patient will schedule a follow up in the clinic in 2-4 weeks.
[2019-04-17] MEDS ORDERED: IV FLUID CONTINUATION 1,000 ML IV ONE ×2 (09:19)
[2019-04-17 09:30] VITALS: BP 118/83; PULSE 84
--- NOTE | 2019-04-17 15:03 | FL ---
Fluoroscopy HISTORY: Pain 2 seconds fluoroscopy time supplied to the referring clinician. 1 intraoperative C-arm images docume nt the procedure. See dictated report from anesthesia.
== END 2019-04-17 09:39 | disposition home or self-care (01) ==
LOC: ORPAIN 07:55
PROVIDERS: ATTEND Pain Medicine Pain Medicine
DX: M50.10 Cervical disc disorder with radiculopathy, unspecified cervical region (principal); M47.816 Spondylosis without myelopathy or radiculopathy, lumbar region; Z88.5 Allergy status to narcotic agent; Z88.8 Allergy status to other drugs, medicaments and biological substances
CPT/HCPCS: 81025; 62321; J2250; J1030; J3010; 99152

== ENCOUNTER 2019-05-01 07:54 | Day surgery (SDC) | payer MEDICARE ==
[2019-04-24 11:19] VITALS: BMI 26.3
[2019-05-01] MEDS ORDERED: LACTATED RINGERS 1,000 ML IV SCH (08:03)
[2019-05-01 08:22] VITALS: RESP 18; TEMP 98.8
--- NOTE | 2019-05-01 09:31 | P.PCN ---
Date of Procedure: 05/01/19 Procedure(s) Performed: PREOPERATIVE DIAGNOSIS: Cervical radiculopathy Cervical degenerative disc disease POSTOPERATIVE DIAGNOSIS: Cervical radiculopathy Cervical degenerative disc disease PROCEDURE Cervical Epidural steroid injection under fluoroscopic guidance at the C7-T1 interspace using right paramedian approach Cervical epidurogram ANESTHESIA: Local with 1% lidocaine 3 ml and IV sedation with Versed 2 mg and 100 g of fentanyl EBL: Minimal PROCEDURE INDICATION: The patient presents with cervical radicular symptoms unresponsive to conservative treatment. This is her second cervical epidural steroid injection. She reports significant relief of her symptoms from her first 2 injections. PROCEDURE DESCRIPTION / TECHNIQUE: The patient was seen and identified in the preoperative area. Risks, benefits, complications including but not limited to infections ,bleeding ,allergic reaction to the medications ,nerve damage and incomplete pain relief, and alternatives were discussed with the patient. The patient agreed to proceed with the procedure and signed the consent. IV was started, and vital signs were stable. Patient was taken to the OR and time out was completed. The patient was placed in the prone position on procedure table and a pillow was placed under the ch est area.. The cervical area was prepped and draped in the usual sterile fashion. Conscious sedation was used during the procedure to decrease patients anxiety. Vital signs was monitored during the entire procedure. Using anterior-posterior fluoroscopy, the C7-T1 interlaminar space was identified and the skin over this site was marked and then infiltrated with 1% lidocaine subcutaneously. Subsequently, a 20-gauge Tuohy epidural needle was inserted and advanced toward the epidural space using the loss of resistance technique and guided by AP and 50 oblique fluoroscopy. The correct needle p osition in the epidural space was verified. After negative aspiration for blood and CSF and in the absence of paresthesias, Isovue 200 2 mL's was injected under live fluoroscopy with good epidural spread. After negative aspiration, a 5 ml mixture containing 10 mg of dexamethasone, 3 mL of preservative free normal saline and 1 mL of 1% lidocaine was injected. Needle was withdrawn intact, skin was cleansed, and bandages were applied. COMPLICATIONS: None DISPOSITION / PLANS: The patient was placed in a supine position and transferred to the recovery area in a stable condition for observation. There was no evidence of lower extremity motor or sensory deficit after the procedure. Patient was discharged from the recovery room after meeting discharge criteria. Home discharge instructions were given to the patient by the staff. The patient will schedule a follow up in the clinic in 2-4 weeks.
[2019-05-01] MEDS ORDERED: IV FLUID CONTINUATION 1,000 ML IV ONE (09:39)
--- NOTE | 2019-05-01 09:58 | FL ---
EXAMINATION TYPE: FL guided pain mgmt statistic DATE OF EXAM: 05/01/2019 HISTORY: Flouroscopy time 5 seconds of fluoroscopy provided. IMPRESSION: 1. Fluoroscopy time.
[2019-05-01 10:09] VITALS: BP 115/70; PULSE 81
== END 2019-05-01 10:15 | disposition home or self-care (01) ==
LOC: ORPAIN 07:54
PROVIDERS: ATTEND Anesthesiology
DX: M50.10 Cervical disc disorder with radiculopathy, unspecified cervical region (principal); Z88.5 Allergy status to narcotic agent; Z88.8 Allergy status to other drugs, medicaments and biological substances
CPT/HCPCS: 81025; 62321; J2250; J1100; J3010; Q9966

== ENCOUNTER → 2019-08-22 | Outpatient (CLI) | payer MEDICARE, OTHER ==
--- NOTE | 2019-08-23 10:42 | CT ---
EXAMINATION TYPE: CT foot LT wo con DATE OF EXAM: 08/22/2019 COMPARISON: None HISTORY: Left foot pain post trauma CT DLP: 197.4 mGycm Automated exposure control for dose reduction was used. Unenhanced CT of the left foot was performed in the axial coronal and sagittal planes. Bone and soft tissue window settings are submitted. 3-D rec onstruction was performed at a separate workstation. FINDINGS: Nondisplaced fracture noted at the medial base of the first metatarsal medially with intra-articular extension and no significant displacement. Additional nondisplaced fracture oriented transversely inv olving the base of the second metatarsal without intra-articular extension. Additional a hairline fra cture without displacement involving the base of the third metatarsal oriented transversely without e vidence for intra-articular extension. 1 mm displaced oblique fracture at the base of the fourth meta tarsal with intra-articular extension. Fifth metatarsal is intact. No additional fractures seen. Soft tissue swelling noted. Overlying cast material seen. No evidence for a Lisfranc dislocation. IMPRESSION: FRACTURES AT THE BASES OF THE FIRST SECOND THIRD AND FOURTH METATARSALS DISCUSSED ABOVE WITHOUT DE FINITE LISFRANC DISLOCATION SEEN.
== END | disposition home or self-care (01) ==
LOC: RADCTMAIN 13:13
PROVIDERS: ATTEND Orthopaedic Surgery
DX: S92.315A Nondisplaced fracture of first metatarsal bone, left foot, initial encounter for closed fracture (principal); S92.325A Nondisplaced fracture of second metatarsal bone, left foot, initial encounter for closed fracture; S92.335A Nondisplaced fracture of third metatarsal bone, left foot, initial encounter for closed fracture; S92.342A Displaced fracture of fourth metatarsal bone, left foot, initial encounter for closed fracture

== ENCOUNTER → 2019-12-12 | Outpatient (CLI) | payer MEDICARE, OTHER ==
--- NOTE | 2019-12-12 14:59 | XR ---
Right shoulder HISTORY: Pain 3 views the right shoulder Correlation to prior exam 01/04/2018 Bone mineralization, joint spaces and alignment are maintained. Right lung apex as visualized is norm al. No fracture or dislocation. IMPRESSION: Normal right shoulder.
== END | disposition home or self-care (01) ==
LOC: RADXRMAIN 12:20
PROVIDERS: ATTEND Anesthesiology
DX: M25.511 Pain in right shoulder (principal)

== ENCOUNTER → 2019-12-12 | Outpatient (CLI) | payer MEDICARE, OTHER ==
[2019-12-12 11:28] VITALS: BP 128/86; PULSE 87; RESP 16
--- NOTE | 2019-12-16 14:48 | P.PAINPG ---
Subjective Progress Note Date: 12/12/19 Jackelin is a pleasant 39-year-old female presented today for follow-up of her neck pain. She was last seen in our clinic in April 2019, at which point she underwent cervical epidural steroid injections 3. Today, her primary pain complaint is bilateral low back pain, she has undergone radiofrequency ablation with us in the past, and pains about 90% pain relief for 8 months to one year. She would like to have a repeat lumbar radiofrequency ablation. Of note, she is also having right shoulder pain, and difficulty moving right shoulder, this started approximately 16 days ago. She has tried baclofen, ibuprofen, TENS, ice, heat. She does endorse occasional tingling in right arm up to the pinky and ring finger. Review of systems is negative for chest pain, shortness of breath, new onset weakness, numbness/tingling, abdominal pain, malaise, fever, night sweats, chills, homicidal or suicidal ideation, or bowel or bladder incontinence. Objective Physical exam: Vitals: Reviewed in EMR GENERAL: Well appearing, in no acute distress PSYCH: Mood and affect is appropriate. Awake, alert, and oriented SKIN: Skin color, texture, turgor normal, no rashes or lesions HEENT: Normocephalic, atraumatic. EOM intact CV: No pedal edema RESP: Respirations are unlabored, no audible wheezing GI: Abdomen non-distended MUSCULOSKELETAL: Bilateral upper and lower extremity strength is normal and symmetric. No atrophy or tone abnormalities are noted. Neck: No pain to palpation over the cervical paraspinous muscles. Lackey's sign negative. No obvious deformity or signs of trauma. Normal cervical lordotic curve and normal cervical spine range of motion Lumbar spine: Straight leg raising in the sitting position is negative for radicular pain. Tenderness to palpation over the lumbar spine and paraspinous muscles bilaterally. Positive for pain with facet loading and back e xtension/rotation. Extremities: Right shoulder-painful range of motion throughout, Chavez sign is positive, crossed adduction positive, tenderness to palpation of anterior and posterior joint line. Gait: Gait is normal NEUR: Bilateral upper and lower extremity coordination and muscle stretch reflexes are physiologic and symmetric. Negative clonus bilaterally. No loss of sensation is noted. Assessment and Plan Assessment: #1 right shoulder arthralgia #2 lumbar spondylosis without myelopathy Plan: Imaging: Right shoulder x-ray ordered Procedure: We will schedule lumbar radiofrequency ablation at L3, L4, L5 for facets L4-5 and L5-S1, we will start with the right side first. Patient has had excellent benefit from these procedures in the past. We will also plan on performing right shoulder joint intra-articular steroid injection at the same time. Prescription given for Mobic 7.5 mg twice a day for pain Follow-up: For above-mentioned procedure. PQRS Measure Charge Sheet Measure #130: Documentation of Current Meds in Medical Chart: Patient's medications documented in chart Measure #226: Tobacco Use: Screen & Cessation Intervention: Pt not a tobacco user Measure #111: Pneumonia Vaccination: Pneumococcal vaccine NOT administered or previously given Measure #47: Advance Care Plan: Advance care planning discussed & documented, pt chose/unable to give Measure #412: Opioid Treatment Agreement: No documentation of signed opioid treatment agreement Measure #408: Opioid Therapy Follow-up Evaluation: Patient had NO f/u eval minimum every 3 months during opioid therapy Measure #317: Preventitive Care & Scrn High Bld Press & F/U: Normal blood pressure, f/u not required Measure #128: Body Mass Index (BMI) Screening & Follow-up: BMI documented within normal parameters Measure #131: Pain Assessment & Follow-up: Pain positive & plan documented, Follow-up scheduled Measure #431: Unhealthy Alcohol Use Preventative Care & Scrn: Patient not identified as an unhealthy alcohol user PQRS Narrative: Smoking Status Former smoker Pain Intensity [Right Shoulder 8 ] Pain Intensity [Lower Back] 7 Scale Used Numeric (1 - 10) Hx Alcohol Use (MH) No Home Medications: Ambulatory Orders Albuterol Inhaler [Ventolin Hfa Inhaler] 2 puff INHALATION BID PRN 01/19/17 Biotin 5,000 mcg PO DAILY 06/13/17 Cholecalciferol [Vitamin D3] 5,000 unit PO DAILY 06/13/17 Sertraline HCl [Zoloft] 200 mg PO QAM 06/13/17 hydrOXYzine PAMOATE [Vistaril] 50 mg PO BID 06/13/17 Cyanocobalamin (Vitamin B-12) [Vitamin B12] 5,000 mcg PO DAILY 06/20/17 Loratadine [Claritin] 10 mg PO DAILY 09/07/17 Omeprazole 20 mg PO DAILY 09/07/17 Gabapentin 800 mg PO TID #90 tablet 01/04/18 Ibuprofen [Motrin] 800 mg PO TID PRN #90 tab 01/04/18 Baclofen 10 mg PO TID PRN 03/01/18 Lidocaine 4% Cream [Lmx 4] 1 applic TOPICAL BID 03/01/18 Budesonide/Formoterol Fumarate [Symbicort 160-4.5 Mcg Inhaler] 2 puff INHALATION BID 03/22/18 Melatonin 5 mg PO HS 01/23/19 Valerian Root 2,120 mg PO DAILY 01/30/19 Controlled Substance Measures - Controlled Substance Measures Is patient prescribed a controlled substance at discharge?: No
== END | disposition home or self-care (01) ==
LOC: PNWHC3 11:00
PROVIDERS: ATTEND Anesthesiology
DX: M25.511 Pain in right shoulder (principal); M47.816 Spondylosis without myelopathy or radiculopathy, lumbar region; Z87.891 Personal history of nicotine dependence; Z79.899 Other long term (current) drug therapy; Z98.890 Other specified postprocedural states
CPT/HCPCS: 99211

== ENCOUNTER 2019-12-26 08:57 | Day surgery (SDC) | payer MEDICARE, OTHER ==
[2019-12-24 17:16] VITALS: BMI 25.0
[2019-12-26 09:24] VITALS: RESP 16; TEMP 97.3
[2019-12-26] MEDS ORDERED: MIDAZOLAM 2 MG/2 ML VIAL ONE (09:25)
[2019-12-26] MEDS ORDERED: methylPREDNISolone ACETATE 40 MG/ML 1 ML VIAL ONE (09:25)
[2019-12-26] MEDS ORDERED: fentaNYL (PF) 50 MCG/ML 2 ML AMP ONE (09:25)
[2019-12-26] MEDS ORDERED: ROPIVACAINE 5MG/ML 20ML VIAL ONE (09:25)
--- NOTE | 2019-12-26 09:47 | P.PCN ---
Date of Procedure: 12/26/19 Procedure(s) Performed: Procedure= Right shoulder joints intra-articular steroid injection under fluoroscopy guidance (fluoroscopy image stored on file in the radiology Department ) Preoperative diagnosis= 1-right shoulder arthralgia. 2-lumbar spondylosis with facet arthropathy Postoperative diagnosis=Same as preop Diagnosis . Complication = none Condition= stable Anesthesia= moderate sedation with intravenous Versed 4 mg , and fentanyl 50 micrograms . Indication for the procedure= patient complaining of right shoulder pain and low back pain , examination was positive for severe right shoulder pain with any shoulder movement. Description of the procedure= procedure risk and benefits discussed with the patient, including but not limited, risk of infection and bleeding, and ALLERGIC reaction to the medication and not complete pain relief and patient agreed with the preceding patient taken to the operating room, placed in supine position or standard monitors applied to the patient then after induction of anesthesia right shoulder area prepped with chlorhexidine 3 times , Then under strict sterile technique, first I did the right shoulder identified under fluoroscopy guidance been local infiltration of the skin and subcu interstitial with lidocaine 1% then 22-gauge Quincke Needle advanced slowly under fluoroscopy and placed in the right shoulder joint needle placement confirmed with AP and oblique and lateral view and after appropriate needle placement confirmed and after negative aspiration, or heme , then Ropivacaine 0.5% 4 mL, and 40 mg of Depo-Medrol mixed together and injected in the right shoulder joint after negative aspiration patient tolerated the procedure well without any complication.
[2019-12-26] MEDS ORDERED: IV FLUID CONTINUATION 700 ML IV ONE (09:49)
--- NOTE | 2019-12-26 09:56 | FL ---
EXAMINATION TYPE: FL guided pain mgmt statistic DATE OF EXAM: 12/26/2019 HISTORY: Fluoroscopy time 2 seconds of fluoroscopy provided. IMPRESSION: 1. Fluoroscopy time.
[2019-12-26 10:06] VITALS: BP 124/85; PULSE 73
== END 2019-12-26 10:18 | disposition home or self-care (01) ==
LOC: ORPAIN 08:57
PROVIDERS: ATTEND Specialist
DX: M25.511 Pain in right shoulder (principal); M47.816 Spondylosis without myelopathy or radiculopathy, lumbar region; Z88.5 Allergy status to narcotic agent
CPT/HCPCS: 81025; 20610; J2250; J1030; J3010; J2795

== ENCOUNTER → 2020-02-28 | Outpatient (CLI) | payer MEDICARE, OTHER ==
--- NOTE | 2020-02-28 14:25 | P.PAINPG ---
Subjective Progress Note Date: 02/28/20 THIS ENCOUNTER WAS PERFORMED A TELEMEDICINE VISIT VIA SECURE TWO-WAY VIDEO AND AUDIO TO MINIMIZE RISK AND TRANSMISSION OF COVID-19. Jackelin is a pleasant 39-year-old female presented today for follow-up for low back pain and right shoulder pain. She underwent right shoulder intra-articular steroid injection on 12/26/2019. She reports more than 50% relief from this procedure, pain has gradually returned over the last 2 weeks. She was also scheduled to undergo lumbar radiofrequency ablation, unfortunately was unable to be performed due to Coronavirus pandemic. She is currently complaining of low back pain radiating to right lower extremityentire leg, nondermatomal distribution, she does endorse numbness and tingling in right lower extremity. She denies weakness. pain is rated as 6/10 described as sharp, spasmodic, dull and constant. Pain is worse with activity and better with medications and rest. She recently went one urgent care where she was given a 3 day prescription for tramadol 50 mg twice a day. she also takes gabapentin and muscle relaxant which she obtains from her primary care physician. She is finding it difficult to ambulate, however the tramadol has helped significantly with the pain. she has undergone radiofrequency ablation with us in the past, and pains about 90% pain relief for 8 months to one year. She would like to have a repeat lumbar radiofrequency ablation. Review of systems is negative for chest pain, shortness of breath, new onset weakness, numbness/tingling, abdominal pain, malaise, fever, night sweats, chills, homicidal or suicidal ideation, or bowel or bladder incontinence. Objective Physical exam : Constitutional: Healthy appearing, well developed, alert, in no acute distress Psychiatric: Judgement and insight intact, alert and oriented Mood and Affect: mood normal, affect appropriate Head and Face: Inspection: normocephalic atraumatic, extraocular movement intact Respiratory: Breathing non-labored nondyspneic Skin: Head and Neck: skin with no lesions of rash Gait: Able to walk without assistive device Neurologic: Sensation grossly intact per patient in C3-T1 dermatomes MSK: right shoulder range of motion is limited in abduction over the head. Assessment and Plan Assessment: #1 right shoulder arthralgia #2 lumbar spondylosis without myelopathy Plan: Procedure: We will schedule lumbar radiofrequency ablation at L3, L4, L5 for facets L4-5 and L5-S1, we will start with the right side first. Patient has had excellent benefit from these procedures in the past. we will also schedule right shoulder intra-articular steroid injection to be done at same visit. These will be scheduled once the clinic reopens for elective procedures. I asked the patient to call her primary care physician regarding a one-month prescription for tramadol 50 mg twice a day, which can be used until she is scheduled for above-mentioned procedure. she has a controlled substance contract with her primary care physician as she is obtaining gabapentin from them. Follow-up: For above-mentioned procedure. PQRS Measure Charge Sheet PQRS Narrative: Smoking Status Former smoker Hx Alcohol Use () No Home Medications: Ambulatory Orders Albuterol Inhaler (Mhu) [Ventolin Hfa Inhaler (Mhu)] 2 puff INHALATION BID PRN 01/19/17 Biotin 5,000 mcg PO DAILY 06/13/17 Cholecalciferol [Vitamin D3] 5,000 unit PO DAILY 06/13/17 Sertraline HCl [Zoloft] 200 mg PO QAM 06/13/17 hydrOXYzine PAMOATE [Vistaril] 50 mg PO BID 06/13/17 Cyanocobalamin (Vitamin B-12) [Vitamin B12] 5,000 mcg PO DAILY 06/20/17 Loratadine [Claritin] 10 mg PO DAILY 09/07/17 Omeprazole 20 mg PO DAILY 09/07/17 Gabapentin 800 mg PO TID #90 tablet 01/04/18 Ibuprofen [Motrin] 800 mg PO TID PRN #90 tab 01/04/18 Baclofen 10 mg PO TID PRN 03/01/18 Lidocaine 4% Cream [Lmx 4] 1 applic TOPICAL BID PRN 03/01/18 Budesonide/Formoterol Fumarate [Symbicort 160-4.5 Mcg Inhaler] 2 puff INHALATION BID 03/22/18 Melatonin 5 mg PO HS 01/23/19 Valerian Root 2,120 mg PO HS 01/30/19 Controlled Substance Measures - Controlled Substance Measures Is patient prescribed a controlled substance at discharge?: No
== END | disposition home or self-care (01) ==
LOC: PNWHC3 07:25
PROVIDERS: ATTEND Anesthesiology
DX: Z53.9 Procedure and treatment not carried out, unspecified reason (principal)

== ENCOUNTER → 2020-03-13 | Outpatient (CLI) | payer MEDICARE, OTHER | END | disposition home or self-care (01) | LOC: LABWHC1 12:37 | PROVIDERS: ATTEND Anesthesiology | DX: Z11.59 Encounter for screening for other viral diseases (principal) | CPT/HCPCS: 87635 ==

== ENCOUNTER → 2020-03-17 | Day surgery (SDC) | payer MEDICARE, OTHER ==
[2020-03-13 11:16] VITALS: BMI 24.3
[~2020-03-17] MED LIST changes: +BUPIVACAINE (PF) 0.5% 30 ML VIAL ONE; +IV FLUID CONTINUATION 150 ML IV ONE; +LIDOCAINE 1% (10MG/ML) FOR IV START INTRADERMA ONE; +LIDOCAINE 4% (PF) 5 ML AMP ONE; +MIDAZOLAM 2 MG/2 ML VIAL ONE; +TRIAMCINOLONE ACETONIDE 40 MG/ML 1 ML VIAL ONE; +fentaNYL (PF) 50 MCG/ML 2 ML AMP ONE
[2020-03-17 08:33] VITALS: TEMP 98.7
--- NOTE | 2020-03-17 10:11 | P.PCN ---
Date of Procedure: 03/17/20 Procedure(s) Performed: PREOPERATIVE DIAGNOSIS: Lumbar Spondylosis, right shoulder osteoarthritis POSTOPERATIVE DIAGNOSIS: Same PROCEDURES: Radiofrequency ablation of the L3, L4, L5 medial branches for facets L4-5 and L5-S1 with fluoroscopic guidance on the right side, right shoulder intra-articular steroid SURGEON: Sydnee Kunz MD. ANESTHESIA: Lidocaine 1% 5 mL, Moderate sedation with intravenous Versed and fentanyl, sedation time 31 minutes EBL: Minimal Fluoroscopy and ultrasound guidance was used for the procedure and images were saved in the radiology portion of the chart. Right shoulder injection: The patient was complaining of right shoulder pain, consistent with right shoulder osteoarthritis, previously responsive to right shoulder intra-articular steroid injection. The posterior shoulder was prepped and draped in the usual sterile fashion. The ultrasound probe was prepped st erilely into the field. right shoulder joint was identified using ultrasound guidance. A 25-gauge needle to anesthetize the skin and subcutaneous tissue with 1% lidocaine1 mL then, a 21-gauge facet needle was advanced into the shoulder joint using continuous ultrasound guidance. After negative aspiration, treatment solution consisting of 40mg Kenalog and 4ml of 0.5% bupivacaine was injected. Patient tolerated procedure well. Then I turned my attention to the low back area for lumbar RFA. PROCEDURE INDICATION: The patient with low back pain secondary to lumbar facet arthropathy who had more than 50% relief of pain with previous diagnostic lumbar medial branch block X2. PROCEDURE DESCRIPTION / TECHNIQUE: The patient was seen and identified in the preoperative area. Risks, benefits, complications, including but not limited to risk of infection ,bleeding , allergic reactions to the medications and incomplete pain relief , and alternatives were discussed with the patient, the patient agreed to proceed with the procedure and signed the consent. IV was started. The operative site was marked. Patient was taken to the OR and time out was completed. The patient was placed in the prone position on the procedure table. The lumbar area was prepped and draped in the usual sterile fashion. . Vital signs were closely monitored during the procedure .IV sedation was used during the procedure to decrease patients anxiety. Using AP and then oblique fluoroscopy, the "eye of the Rohit dog" corresponding to the connection between the superior and transverse articular processes of the L4 and L5 as well as the sacral ala were identified, marked, and localized with 1% lidocaine. Subsequently, an 18 guage 100 mm radiofrequency cannula with a 10-mm active tip was advanced guided by fluoroscopy to the identified target at each site. Needle positioning was confirmed on AP, oblique and lateral fluoroscopy. Motor testing at 2.5 Hz was done with paraspinal muscle stimulation only, and no radicular symptoms down the legs. Then 1 mL of 4% lidocaine was injected in each site. Radiofrequency thermocoagulation at 80 degrees celsius for 90 seconds was then performed. [place] were removed. Sterile dressings were applied. COMPLICATIONS: No acute complications. DISPOSITION / PLANS: The patient was placed in a supine position and transferred to the recovery area in a stable condition for observation and was discharged from the recovery room after meeting discharge criteria. Home discharge instructions given to the patient by the staff. The patient will follow up for left-sided lumbar RFA in 2 weeks.
[2020-03-17 10:18] VITALS: RESP 16
--- NOTE | 2020-03-17 10:27 | FL ---
EXAMINATION TYPE: FL guided pain mgmt statistic DATE OF EXAM: 03/17/2020 HISTORY: Fluoroscopy time 15 seconds of fluoroscopy provided. IMPRESSION: 1. Fluoroscopy time.
[2020-03-17 10:36] VITALS: BP 109/75; PULSE 92
== END ==
LOC: ORPAIN 07:26
PROVIDERS: ATTEND Anesthesiology
DX: M47.816 Spondylosis without myelopathy or radiculopathy, lumbar region (principal); M19.011 Primary osteoarthritis, right shoulder; Z87.891 Personal history of nicotine dependence; Z79.1 Long term (current) use of non-steroidal anti-inflammatories (NSAID); Z79.51 Long term (current) use of inhaled steroids; Z79.899 Other long term (current) drug therapy
CPT/HCPCS: 81025; 20610; 64635; 64636; J2001; J2250; J3301; J3010; 99152; 99153

== ENCOUNTER → 2020-03-27 | Outpatient (CLI) | payer MEDICARE, OTHER | END | disposition home or self-care (01) | LOC: LABWHC1 10:47 | PROVIDERS: ATTEND Anesthesiology | DX: Z11.59 Encounter for screening for other viral diseases (principal) ==

== ENCOUNTER 2020-03-31 08:09 | Day surgery (SDC) | payer MEDICARE, OTHER ==
[2020-03-30 10:40] VITALS: BMI 23.5
[2020-03-31 08:26] VITALS: RESP 16; TEMP 97.3
[2020-03-31] MEDS ORDERED: LIDOCAINE 1% (10MG/ML) FOR IV START INTRADERMA ONE (08:29)
[2020-03-31] MEDS ORDERED: LACTATED RINGERS 1,000 ML IV SCH (08:30)
[2020-03-31] MEDS ORDERED: MIDAZOLAM 2 MG/2 ML VIAL IVP ONE (08:32)
[2020-03-31] MEDS ORDERED: MIDAZOLAM 2 MG/2 ML VIAL ONE ×2 (08:34)
[2020-03-31] MEDS ORDERED: ROPIVACAINE 5MG/ML 20ML VIAL ONE (08:34)
[2020-03-31] MEDS ORDERED: LIDOCAINE 4% (PF) 5 ML AMP ONE (08:34)
[2020-03-31] MEDS ORDERED: fentaNYL (PF) 50 MCG/ML 2 ML AMP ONE (08:34)
[2020-03-31] MEDS ORDERED: TRIAMCINOLONE ACETONIDE 40 MG/ML 1 ML VIAL ONE (08:34)
--- NOTE | 2020-03-31 09:19 | P.PCN ---
Date of Procedure: 03/31/20 Description of Procedure: PREOPERATIVE DIAGNOSIS: Lumbar Spondylosis, right shoulder osteoarthritis POSTOPERATIVE DIAGNOSIS: Same PROCEDURES: Radiofrequency ablation of the L3, L4, L5 medial branches for facets L4-5 and L5-S1 with fluoroscopic guidance on the LEFT SURGEON: Luis Lomax MD. ANESTHESIA: Lidocaine 1% 5 mL, Moderate sedation with intravenous 6mg Versed and 100mcq fentanyl EBL: Minimal PROCEDURE INDICATION: The patient with low back pain secondary to lumbar facet arthropathy who had more than 50% relief of pain with previous diagnostic lumbar medial branch block X2. She has responded well to right lumbar RFA done recently. PROCEDURE DESCRIPTION / TECHNIQUE: The patient was seen and identified in the preoperative area. Risks, benefits, complications, including but not limited to risk of infection ,bleeding , allergic reactions to the medications and incomplete pain relief , and alternatives were discussed with the patient, the patient agreed to proceed with the procedure and signed the consent. IV was started. The operative site was marked. Patient was taken to the OR and time out was completed. The patient was placed in the prone position on the procedure table. The lumbar area was prepped and draped in the usual sterile fashion. . Vital signs were closely monitored during the procedure .IV sedation was used during the procedure to decrease patients anxiety. Using AP and then oblique fluoroscopy, the "eye of the Rohit dog" corresponding to the connection between the superior and transverse articular processes of the L4 and L5 as well as the sacral ala were identified, marked, and localized with 1% lidocaine. Subsequently, an 18 guage 100 mm radiofrequency cannula with a 10-mm active tip was advanced guided by fluoroscopy to the identified target at each site. Needle positioning was confirmed on AP, oblique and lateral fluoroscopy. Motor testing at 2.5 Hz was done with paraspinal muscle stimulation only, and no radicular symptoms down the legs. Then 1 mL of 4% lidocaine was injected in each site. Radiofrequency thermocoagulation at 80 degrees celsius for 90 seconds was then performed. A second burn was performed after rotating needles 180 degrees. [place] were removed after injecting 1ml 0.5% Ropivacaine and 5mg Kenalog. Sterile dressings were applied. COMPLICATIONS: No acute complications. DISPOSITION / PLANS: The patient was placed in a supine position and transferred to the recovery area in a stable condition for observation and was discharged from the recovery room after meeting discharge criteria. Home discharge instructions given to the patient by the staff. MRI for right shoulder was given to patient and will follow up in clinic once complete.
[2020-03-31 09:45] VITALS: BP 125/93; PULSE 88
--- NOTE | 2020-03-31 14:28 | FL ---
Fluoroscopy HISTORY: Pain 23 seconds fluoroscopy time supplied to the referring clinician. 3 intraoperative C-arm images docum ent the procedure. See dictated report from anesthesia.
== END 2020-03-31 09:53 | disposition home or self-care (01) ==
LOC: ORPAIN 08:09
PROVIDERS: ATTEND Anesthesiology
DX: M47.896 Other spondylosis, lumbar region (principal); M19.011 Primary osteoarthritis, right shoulder; Z88.5 Allergy status to narcotic agent
CPT/HCPCS: 81025; 64635; 64636; J2001; J2250; J3301; J3010; J2795; 99152; 99153

== ENCOUNTER → 2020-05-16 | Outpatient (CLI) | payer MEDICARE, OTHER ==
--- NOTE | 2020-05-17 12:21 | MR ---
EXAMINATION TYPE: MR shoulder RT wo con DATE OF EXAM: 05/16/2020 COMPARISON: None HISTORY: Right shoulder pain TECHNIQUE: Multiplanar, multisequence imaging of the right shoulder is performed without contrast. FINDINGS: Rotator Cuff: There is bursal scuffing involving the anterior fibers of the insertion of the supraspi natus tendon with no evidence of through thickness tear or retraction. Infraspinatus and subscapularis tendons have a normal appearance. Small amount of fluid in the subacromial bursa. Acromioclavicular Joint: Mild hypertrophic change of the AC joint does result in mild mass effect and impingement of the supraspinatus junction. Glenohumeral Joint: Joint spaces preserved. Glenohumeral ligaments intact. Labrum: The labrum appears grossly intact given limitation of non-arthrogram study. Biceps Tendon: The long head of biceps is in normal location within bicipital groove. Bone marrow signal: No focal abnormal marrow signal is appreciated. IMPRESSION: 1. Mild tendinosis and bursal scuffing of the insertion of the supraspinatus tendon anterior fibers w ith no evidence of rotator cuff through thickness tear or retraction. 2. Mild impingement
== END | disposition home or self-care (01) ==
LOC: RADMRIMAIN 12:27
PROVIDERS: ATTEND Anesthesiology
DX: M75.91 Shoulder lesion, unspecified, right shoulder (principal)

== ENCOUNTER → 2020-05-20 | Outpatient (CLI) | payer MEDICARE, OTHER ==
[2020-05-20 11:02] VITALS: BP 132/84; PULSE 103; RESP 16
--- NOTE | 2020-05-20 11:17 | P.PAINPG ---
Subjective Progress Note Date: 05/20/20 Jackelin is a pleasant 39-year-old female presented today for follow-up for low back pain and right shoulder pain. She underwent right shoulder intra-articular steroid injection on 03/17/2020. At that time, she also underwent right lumbar radiofrequency ablation to L3, L4, L5 and left-sided radiofrequency ablation on 03/31/2020. She returns today for follow-up. She reports good ongoing pain relief from lumbar RFA, although she does note some left-sided spasms in the lumbar region. Regarding the shoulder pain, this is rated as 5/10, described as aching, worse with overhead movements and better with medications and injections. She obtained over a month of significant benefit from the last shoulder injection. She does endorse numbness and tingling in the right hand which is intermittent.. She takes gabapentin and muscle relaxant which she obtains from her primary care physician. Review of systems is negative for chest pain, shortness of breath, new onset weakness, numbness/tingling, abdominal pain, malaise, fever, night sweats, chills, homicidal or suicidal ideation, or bowel or bladder incontinence. Objective Physical exam: Vitals: Reviewed in EMR GENERAL: Well appearing, in no acute distress PSYCH: Mood and affect is appropriate. Awake, alert, and oriented SKIN: Skin color, texture, turgor normal, no rashes or lesions HEENT: Normocephalic, atraumatic. EOM intact CV: No pedal edema RESP: Respirations are unlabored, no audible wheezing GI: Abdomen non-distended MUSCULOSKELETAL: Bilateral upper and lower extremity strength is normal and symmetric. No atrophy or tone abnormalities are noted. Neck: Mild tenderness to palpation over the cervical paraspinous muscles on the right side. Spurling negative, Lackey's sign negative. No pain with neck flexion, extension, or lateral flexion. No obvious deformity or signs of trauma. Normal cervical lordotic curve and normal cervical spine range of motion Lumbar spine: Tenderness to palpation over the lumbar paraspinous muscles on the left side with palpable trigger point. Positive for pain with facet loading and back extension/rotation. Normal range of motion without pain reproduction Extremities: Right shoulder range of motion is limited in abduction and flexion. Crossed adduction sign negative. Chavez sign positive. Gait: Gait is normal NEUR: Bilateral upper and lower extremity coordination and muscle stretch reflexes are physiologic and symmetric. No loss of sensation is noted. Imaging: MRI right shoulder done at [facility] on 05/16/2020 shows mild tendinosis and bursal scuffing of the insertion of the supraspinatus tendon anterior fibers with no evidence of rotator cuff through thickness tear. Mild impingement of the supraspinatus junction. Assessment and Plan Assessment: #1 right shoulder arthralgia #2 lumbar spondylosis without myelopathy #3 myofascial pain syndrome of the left lumbar region Plan: Procedure: Patient recently underwent lumbar radiofrequency ablation at L3, L4, L5 for facets L4-5 and L5-S1 with good benefit, she does have palpable trigger points in the left lumbar paraspinal musculature. She would benefit from left paraspinal trigger point injection of the lumbar region. At the same time, we will also perform right shoulder intra-articular steroid injection. Referral given to physical therapy for shoulder exercises. If she continues to have pain after completion of shoulder physical therapy and shoulder joint injection, we will plan on sending her to a surgeon for surgical evaluation. PQRS Measure Charge Sheet Measure #130: Documentation of Current Meds in Medical Chart: Patient's medications documented in chart Measure #226: Tobacco Use: Screen & Cessation Intervention: Pt screened for tobacco use AND intervention given Measure #111: Pneumonia Vaccination: Pneumococcal vaccine NOT administered or previously given Measure #47: Advance Care Plan: Advance care planning discussed & documented, pt chose/unable to give Measure #412: Opioid Treatment Agreement: No documentation of signed opioid shahla tment agreement Measure #408: Opioid Therapy Follow-up Evaluation: Patient had NO f/u eval minimum every 3 months during opioid therapy Measure #317: Preventitive Care & Scrn High Bld Press & F/U: Normal blood pressure, f/u not required Measure #128: Body Mass Index (BMI) Screening & Follow-up: BMI documented within normal parameters Measure #131: Pain Assessment & Follow-up: Pain positive & plan documented, Follow-up scheduled Measure #431: Unhealthy Alcohol Use Preventative Care & Scrn: Patient not identified as an unhealthy alcohol user PQRS Narrative: Smoking Status Former smoker Pain Intensity [Right Shoulder 7 ] Scale Used Numeric (1 - 10) Hx Alcohol Use (MH) No Home Medications: Ambulatory Orders Albuterol Inhaler (Mhu) [Ventolin Hfa Inhaler (Mhu)] 2 puff INHALATION BID PRN 01/19/17 Biotin 5,000 mcg PO DAILY 06/13/17 Cholecalciferol [Vitamin D3] 5,000 unit PO DAILY 06/13/17 Sertraline HCl [Zoloft] 200 mg PO QAM 06/13/17 hydrOXYzine pamoate [Vistaril] 50 mg PO BID 06/13/17 Cyanocobalamin (Vitamin B-12) [Vitamin B12] 5,000 mcg PO DAILY 06/20/17 Loratadine [Claritin] 10 mg PO DAILY 09/07/17 Omeprazole 20 mg PO DAILY 09/07/17 Gabapentin 800 mg PO TID #90 tablet 01/04/18 Ibuprofen [Motrin] 800 mg PO TID PRN #90 tab 01/04/18 Baclofen 10 mg PO TID PRN 03/01/18 Lidocaine 4% Cream [Lmx 4] 1 applic TOPICAL BID PRN 03/01/18 Budesonide/Formoterol Fumarate [Symbicort 160-4.5 Mcg Inhaler] 2 puff INHALATION BID 03/22/18 Melatonin 10 mg PO HS 01/23/19 Valerian Root 2,120 mg PO HS 01/30/19 diazePAM [Valium] 5 mg PO ONCE #1 tab 04/22/20 Controlled Substance Measures - Controlled Substance Measures Is patient prescribed a controlled substance at discharge?: No
== END | disposition home or self-care (01) ==
LOC: PNWHC3 10:11
PROVIDERS: ATTEND Anesthesiology
DX: M47.816 Spondylosis without myelopathy or radiculopathy, lumbar region (principal); M25.511 Pain in right shoulder; M79.18 Myalgia, other site; Z87.891 Personal history of nicotine dependence; Z98.890 Other specified postprocedural states; Z79.899 Other long term (current) drug therapy
CPT/HCPCS: 99211

== ENCOUNTER → 2020-06-04 | Day surgery (SDC) | payer MEDICARE, OTHER ==
[2020-05-29 11:47] VITALS: BMI 24.3
[~2020-06-04] MED LIST changes: -BUPIVACAINE (PF) 0.5% 30 ML VIAL ONE; +IV FLUID CONTINUATION 1,000 ML IV ONE; -IV FLUID CONTINUATION 150 ML IV ONE; +LACTATED RINGERS 1,000 ML IV ONE; -LIDOCAINE 4% (PF) 5 ML AMP ONE; +ROPIVACAINE 5MG/ML 20ML VIAL ONE; -TRIAMCINOLONE ACETONIDE 40 MG/ML 1 ML VIAL ONE; +methylPREDNISolone ACETATE 40 MG/ML 1 ML VIAL ONE
[2020-06-04 13:03] VITALS: RESP 16; TEMP 97.7
--- NOTE | 2020-06-04 13:59 | P.PCN ---
Date of Procedure: 06/04/20 Procedure(s) Performed: Procedure= Right shoulder joints intra-articular steroid injection under fluoroscopy guidance (fluoroscopy image stored on file in the radiology Department ) Trigger point injection lumbar paraspinal muscles , 2 on the right side lumbar paraspinal muscles, and 2 on the left side lumbar paraspinal muscles Preoperative diagnosis= 1-right shoulder arthralgia. 2-myofascial pain syndrome lumbar area Postoperative diagnosis=Same as preop Diagnosis . Complication = none Condition= stable Anesthesia= moderate sedation with intravenous Versed 4 mg , and fentanyl 100 micrograms . Indication for the procedure= patient complaining of right shoulder pain and low back pain , examination was positive for severe right shoulder pain with any shoulder movement. Description of the procedure= procedure risk and benefits discussed with the patient, including but not limited, risk of infection and bleeding, and ALLERGIC reaction to the medication and not complete pain relief and patient agreed with the preceding patient taken to the operating room, placed in prone position or standard monitors applied to the patient then after induction of anesthesia right shoulder area prepped with chlorhexidine 3 times , Then under strict sterile technique, first I did the right shoulder identified under fluoroscopy guidance been local infiltration of the skin and subcu interstitial with lidocaine 1% then 22-gauge Quincke Needle advanced slowly under fluoroscopy and placed in the right shoulder joint needle placement confirmed with AP and oblique and lateral view and after appropriate needle placement confirmed and after negative aspiration, or heme , then Ropivacaine 0.5% 4 mL, and 40 mg of Depo-Medrol mixed together and injected in the right shoulder joint after negative aspiration patient tolerated the procedure well without any complication. And after that the trigger point was identified in the lumbar paraspinal muscles, 2 on the right side lumbar paraspinal muscles and 2 on the left side lumbar paraspinal muscles, each of the trigger point injected with ropivacaine 0.5% 3 mL, using 25-gauge needle and injection done after negative aspiration, and there was no paresthesia during the injection, injection done under sterile technique , after the lumbar area prepped with Betadine 3, patient tolerated the procedure well without any confusion and she will follow up in the pain clinic in a few weeks for repeat injection
[2020-06-04 14:22] VITALS: BP 137/98; PULSE 92
--- NOTE | 2020-06-04 16:47 | FL ---
EXAMINATION TYPE: FL guided pain mgmt statistic DATE OF EXAM: 06/04/2020 CLINICAL HISTORY: Shoulder pain. TECHNIQUE: Fluoroscopy. COMPARISON: None. FINDINGS: Fluoroscopic guidance was provided during shoulder pain relief procedure performed by Dr. House . A total of 3 seconds of fluoroscopic time was utilized during the procedure and 0 spot im ages are acquired or saved to PACS. IMPRESSION: As Above.
== END ==
LOC: ORPAIN 11:56
PROVIDERS: ATTEND Specialist
DX: M79.18 Myalgia, other site (principal); M54.5 Low back pain; M25.511 Pain in right shoulder; Z98.51 Tubal ligation status; Z88.5 Allergy status to narcotic agent
CPT/HCPCS: 81025; 77002; 20553; 20610; J2250; J1030; J3010; J2795

== ENCOUNTER → 2020-06-23 | Day surgery (SDC) | payer MEDICARE, OTHER ==
[2020-06-19 11:36] VITALS: BMI 23.9
[~2020-06-23] MED LIST changes: -LACTATED RINGERS 1,000 ML IV ONE
--- NOTE | 2020-06-23 10:00 | P.PCN ---
Date of Procedure: 06/23/20 Procedure(s) Performed: Procedure= Right shoulder joints intra-articular steroid injection under fluoroscopy guidance (fluoroscopy image stored on file in the radiology Department ) Trigger point injection lumbar paraspinal muscles , 2 on the right side lumbar paraspinal muscles, and 2 on the left side lumbar paraspinal muscles Preoperative diagnosis= 1-right shoulder arthralgia. 2-myofascial pain syndrome lumbar area Postoperative diagnosis=Same as preop Diagnosis . Complication = none Condition= stable Anesthesia= moderate sedation with intravenous Versed 2 mg , and fentanyl 100 micrograms . Indication for the procedure= patient complaining of right shoulder pain and low back pain , examination was positive for severe right shoulder pain with any shoulder movement. Description of the procedure= procedure risk and benefits discussed with the patient, including but not limited, risk of infection and bleeding, and ALLERGIC reaction to the medication and not complete pain relief and patient agreed with the preceding patient taken to the operating room, placed in position or standard monitors applied to the patient then after induction of anesthesia right shoulder area prepped with chlorhexidine 3 times , Then under strict sterile technique, first I did the right shoulder identified under fluoroscopy guidance been local infiltration of the skin and subcu interstitial with lidocaine 1% then 22-gauge Quincke Needle advanced slowly under fluoroscopy and placed in the right shoulder joint needle placement confirmed with AP and oblique and lateral view and after appropriate needle placement confirmed and after negative aspiration, or heme , then Ropivacaine 0.5% 5 mL, and 40 mg of Depo-Medrol mixed together and injected in the right shoulder joint after negative aspiration patient tolerated the procedure well without any complication. And after that the patient placed in sitting position to do the trigger point ,the trigger point was identified in the lumbar paraspinal muscles, 2 on the right side lumbar paraspinal muscles and 2 on the left side lumbar paraspinal muscles, each of the trigger point injected with ropivacaine 0.5% 3 mL, using 25-gauge needle and injection done after negative aspiration, and there was no paresthesia during the injection, injection done under sterile technique , after the lumbar area prepped with Betadine 3, patient tolerated the procedure well without any confusion and she will follow up in the pain clinic in a few weeks for repeat injection
[2020-06-23 10:39] VITALS: BP 123/65; PULSE 79; RESP 17
--- NOTE | 2020-06-23 11:12 | FL ---
EXAMINATION TYPE: FL guided pain mgmt statistic DATE OF EXAM: 06/23/2020 CLINICAL HISTORY: Right shoulder pain. TECHNIQUE: Fluoroscopy. COMPARISON: None. FINDINGS: Fluoroscopic guidance was provided during pain relief procedure performed by Dr. House . A total of 5 seconds of fluoroscopic time was utilized during the procedure and two spot images ar e acquired. Images acquired shows needle localization near the right shoulder joint. IMPRESSION: As Above.
== END ==
LOC: ORPAIN 08:59
PROVIDERS: ATTEND Specialist
DX: M25.511 Pain in right shoulder (principal); M79.18 Myalgia, other site; Z88.5 Allergy status to narcotic agent
CPT/HCPCS: 81025; 77002; 20553; 20610; J2250; J1030; J3010; J2795; 99152

== ENCOUNTER → 2020-07-20 | Outpatient (CLI) | payer MEDICARE, OTHER ==
[2020-07-20 11:31] VITALS: BP 113/85; PULSE 119; RESP 20; TEMP 98.1
--- NOTE | 2020-07-22 08:00 | P.PAINPG ---
Subjective Progress Note Date: 07/20/20 this is follow-up visit for this 39 years old female with a chronic history of right shoulder pain and low back pain she is diagnosed with right shoulder arthralgia and recently we did a right shoulder steroid injection 2 and patient reported that her shoulder pain improved significantly, and also patient had severe and chronic low back pain she is diagnosed with lumbar spondylosis and lumbar facet arthropathy, in March 2020 we did RFA of the medial branch lumbar area patient reported that her low back pain improved significantly , currently she is complaining of severe low back pain localized in the buttock area bilaterally, the pain is constant and increases with any activity she denies any numbness or tingling sensation, she had no motor or sensory deficit she has no change in bowel movement or urination she has no fever or night sweats, she continues to use Neurontin 800 mg 3 times a day Motrin 800 mg 3 times a day and baclofen 10 mg 3 times a day she denies any side effect of the medication, she is getting prescription refills from her primary care Objective - Vital Signs Vital signs: Vital Signs Temp 98.1 F 07/20/20 11:06 Pulse 119 H 07/20/20 11:06 Resp 20 07/20/20 11:06 BP 113/85 07/20/20 11:06 Pulse Ox 98 07/20/20 11:06 Intake & Output 07/20/20 07/21/20 07/21/20 18:59 06:59 18:59 Weight 69.4 kg - Exam Physical Examinations : -Constitutiona : Cooperative , not in acute distress . -HEENT : nech : supple , no Lymphadenopathy , normal thyroid size . : eyes : no ptosis , no icterus, no photophobia . : ENT : normal of hearing , normal oropharynx , no Thrush . - Respiratory : Chest clear to auscultations Bilaterally , no wheezing , no Rhonchi . - Cardiovascula : regular rate and rhythem , S1 , S2 , no S3 , no S4. - Gastrointestina : abdomen soft no tenderness , bowel sounds , no organomegally . - Genitourinary : Defferred . - neurologic : Cranial nerve II to XII intact , no focal neurological deffecit . -psychatric : alert , oriented X 3 , appropriate affect , intact judgment and insight . -Lymphatic : no Lymphadenopathy . - musculoskeltal : Lumber spine moter stegnth lower extremities ,thigh and legs 5/5 Right side , 5/5 Left side deep tendon reflexes : normal Knee Jerk , normal ankle Jerk lumber facet Loading Test =positive Right , positive Left Range of motion of the lumbar spine Flexion 30 degrees, extension 10 degrees strait leg raising test = positive at 45 degree Fabere test= positive Right , and positive LT . Sever tenderness over the Sacroiliac joint on the Right , and Left sides Gaenslen test= positive right ,and positive left . Seated flexion test= positive right ,and positive Left . Assessment and Plan Plan: Assessment and plan=1-right shoulder arthralgia Pain improved after right shoulder steroid injection. 2-lumbar spondylosis with lumbar facet arthropathy. Status post RFA of the medial branch lumbar area done in March 2020. 3-bilateral sacroiliitis. Patient could benefit from bilateral sacroiliac joint steroid injection. Time with Patient: Less than 30 PQRS Measure Charge Sheet Measure #130: Documentation of Current Meds in Medical Chart: Patient's medications documented in chart Measure #226: Tobacco Use: Screen & Cessation Intervention: Pt not a tobacco user Measure #111: Pneumonia Vaccination: Pneumococcal vaccine NOT administered or previously given Measure #47: Advance Care Plan: Advance care planning discussed & documented, pt chose/unable to give Measure #412: Opioid Treatment Agreement: No documentation of signed opioid treatment agreement Measure #408: Opioid Therapy Follow-up Evaluation: Patient had NO f/u eval minimum every 3 months during opioid therapy Measure #317: Preventitive Care & Scrn High Bld Press & F/U: Normal blood pressure, f/u not required Measure #128: Body Mass Index (BMI) Screening & Follow-up: BMI documented within normal parameters Measure #131: Pain Assessment & Follow-up: Pain positive & plan documented, Follow-up scheduled Measure #431: Unhealthy Alcohol Use Preventative Care & Scrn: Patient not identified as an unhealthy alcohol user PQRS Narrative: Smoking Status Former smoker Blood Pressure 113/85 Pain Intensity [Lower Back] 6 Scale Used Numeric (1 - 10) Hx Alcohol Use (MH) No Home Medications: Ambulatory Orders Albuterol Inhaler (Mhu) [Ventolin Hfa Inhaler (Mhu)] 2 puff INHALATION BID PRN 01/19/17 Biotin 5,000 mcg PO DAILY 06/13/17 Cholecalciferol [Vitamin D3] 5,000 unit PO MOWEFR 06/13/17 Sertraline HCl [Zoloft] 200 mg PO QAM 06/13/17 hydrOXYzine pamoate [Vistaril] 50 mg PO BID 06/13/17 Cyanocobalamin (Vitamin B-12) [Vitamin B12] 5,000 mcg PO DAILY 06/20/17 Loratadine [Claritin] 10 mg PO DAILY 09/07/17 Omeprazole 20 mg PO DAILY 09/07/17 Gabapentin 800 mg PO TID #90 tablet 01/04/18 Ibuprofen [Motrin] 800 mg PO TID PRN #90 tab 01/04/18 Baclofen 10 mg PO TID PRN 03/01/18 Budesonide/Formoterol Fumarate [Symbicort 160-4.5 Mcg Inhaler] 2 puff INHALATION BID 03/22/18 Melatonin 10 mg PO HS 01/23/19 Valerian Root 2,120 mg PO HS 01/30/19 QUEtiapine [SEROquel] 200 mg PO HS 05/29/20 Varenicline [Chantix Continuing Pack] 1 mg PO BID 06/19/20 Controlled Substance Measures - Controlled Substance Measures Is patient prescribed a controlled substance at discharge?: No
== END | disposition home or self-care (01) ==
LOC: PNWHC3 10:49
PROVIDERS: ATTEND Specialist
DX: M47.816 Spondylosis without myelopathy or radiculopathy, lumbar region (principal); M46.1 Sacroiliitis, not elsewhere classified; M46.96 Unspecified inflammatory spondylopathy, lumbar region; M25.511 Pain in right shoulder; Z87.891 Personal history of nicotine dependence; Z79.891 Long term (current) use of opiate analgesic; Z79.899 Other long term (current) drug therapy
CPT/HCPCS: 99211

== ENCOUNTER 2020-08-04 11:39 | Day surgery (SDC) | payer MEDICARE, OTHER ==
[2020-07-31 16:43] VITALS: BMI 23.9
[~2020-08-04 11:39] MED LIST changes: -IV FLUID CONTINUATION 1,000 ML IV ONE; -LIDOCAINE 1% (10MG/ML) FOR IV START INTRADERMA ONE; -MIDAZOLAM 2 MG/2 ML VIAL ONE; -ROPIVACAINE 5MG/ML 20ML VIAL ONE; -fentaNYL (PF) 50 MCG/ML 2 ML AMP ONE; -methylPREDNISolone ACETATE 40 MG/ML 1 ML VIAL ONE
[2020-08-04 11:56] VITALS: TEMP 98.1
[2020-08-04] MEDS ORDERED: LIDOCAINE 1% (10MG/ML) FOR IV START INTRADERMA ONE (12:00)
[2020-08-04] MEDS ORDERED: fentaNYL (PF) 50 MCG/ML 2 ML AMP ONE (12:08)
[2020-08-04] MEDS ORDERED: MIDAZOLAM 2 MG/2 ML VIAL ONE (12:08)
[2020-08-04] MEDS ORDERED: ROPIVACAINE 5MG/ML 20ML VIAL ONE (12:08)
[2020-08-04] MEDS ORDERED: TRIAMCINOLONE ACETONIDE 40 MG/ML 1 ML VIAL ONE (12:08)
--- NOTE | 2020-08-04 12:18 | P.PCN ---
Date of Procedure: 08/04/20 Surgeon: Asif Persaud Pathology: none sent Condition: stable Disposition: PACU Description of Procedure: Preoperative diagnoses= bilateral sacroiliac joint dysfunction and sacroiliitis Postoperative diagnoses= same as preoperative diagnosis. Procedure= bilateral sacroiliac joint steroid injection under fluoroscopic guidance. Anesthesia= local anesthesia with lidocaine 1% and IV moderate conscious sedation with fentanyl and Versed Estimated blood loss=minimal. Procedure indication= the patient had a history of severe chronic low back pain, diagnosed with sacroiliitis and lumbar sacral facet arthropathy unresponsive to conservative treatment. Procedure description= the patient was seen and identified in the preoperative holding area, risks and benefits and alternative of the procedure and possible complications discussed with the patient, patient signed the consent. an IV was started, and vital signs were monitored and were stable throughout the p rocedure, patient was placed in the prone position or table and the lumbosacral area was prepped and draped with a sterile fashion, vital signs were closely monitored during the procedure.The sacroiliac joint was identified on the AP view of fluoroscopy then the C-arm was tilted to the contralateral oblique position to superimpose the anterior and posterior joint lines on each other and to have a unified joint line with the target point at the inferior one third of this line. I used 22-gauge 3-1/2 inch Quincke spinal needle for this procedure and after getting into the sacroiliac joint I injected 20 mg of Kenalog +2 MLS of Ropivacaine 0.5%. the other side was done in the same manner. The total dose of Kenalog received today is 40 mg. Patient tolerated the procedure well without any complication, The patient returned to supine position after the back was cleaned and a Band- Aid applied, the patient transported to recovery room in stable condition and he was monitored for 30 minutes before she was discharged home in stable condition . patient will follow up with the pain clinic in a few weeks. A copy of the needle placement was saved to the C-arm machine.
[2020-08-04] MEDS ORDERED: IV FLUID CONTINUATION 1,000 ML IV ONE (12:22)
[2020-08-04 12:25] VITALS: RESP 18
[2020-08-04 12:39] VITALS: BP 128/92; PULSE 95
--- NOTE | 2020-08-04 16:20 | FL ---
EXAMINATION TYPE: FL guided pain mgmt statistic DATE OF EXAM: 08/04/2020 COMPARISON: NONE HISTORY: Pain injection. Lower back pain. TECHNIQUE: Fluoroscopy. FINDINGS: Fluoroscopic guidance was provided during procedure for performing physician. A total of 6 seconds of fluoroscopic time was utilized during the procedure and 2 spot images was acquired. Plea se see operative report for additional details. IMPRESSION: As Above.
== END 2020-08-04 12:54 | disposition home or self-care (01) ==
LOC: ORPAIN 11:39
PROVIDERS: ATTEND Anesthesiology
DX: G89.29 Other chronic pain (principal); M46.1 Sacroiliitis, not elsewhere classified; M53.3 Sacrococcygeal disorders, not elsewhere classified; M47.898 Other spondylosis, sacral and sacrococcygeal region; F32.9 Major depressive disorder, single episode, unspecified; J45.909 Unspecified asthma, uncomplicated; Z88.5 Allergy status to narcotic agent; Z79.899 Other long term (current) drug therapy
CPT/HCPCS: 81025; J2250; J3301; J3010; J2795; G0260

== ENCOUNTER → 2020-09-16 | Outpatient (CLI) | payer MEDICARE, OTHER ==
[2020-09-16 11:24] VITALS: BP 124/85; PULSE 115; RESP 18; TEMP 98.5
--- NOTE | 2020-09-16 18:04 | P.PN ---
Subjective Progress Note Date: 09/16/20 this is follow-up visit for this 40 years old female with a chronic history of right shoulder pain and low back pain she is diagnosed with right shoulder arthralgia and recently we did a right shoulder steroid injection 2 and patient reported that her shoulder pain improved significantly, and also patient had severe and chronic low back pain she is diagnosed with lumbar spondylosis and lumbar facet arthropathy, and bilateral sacroiliitis , previously we did bilateral sacroiliac joint steroid injection and RFA of the medial branch lumbar area , currently she is complaining of severe low back pain localized in the buttock area bilaterally, the pain is constant and increases with any activity she denies any numbness or tingling sensation, she had no motor or sensory deficit she has no change in bowel movement or urination she has no fever or night sweats, she continues to use Neurontin 800 mg 3 times a day Motrin 800 mg 3 times a day and baclofen 10 mg 3 times a day she denies any side effect of the medication, she is getting prescription refills from her primary care Objective - Vital Signs Vital signs: Vital Signs Temp 98.5 F 09/16/20 11:19 Pulse 115 H 09/16/20 11:19 Resp 18 09/16/20 11:19 BP 124/85 09/16/20 11:19 Pulse Ox 99 09/16/20 11:19 - Exam Physical examination -Constitutiona : Cooperative , not in acute distress . -HEENT : nech : supple , no Lymphadenopathy , normal thyroid size . : eyes : no ptosis , no icterus, no photophobia . - neurologic : Cranial nerve II to XII intact , no focal neurological deffecit . -psychatric : alert , oriented X 3 , appropriate affect , intact judgment and insight . -Lymphatic : no Lymphadenopathy . - musculoskeltal : Lumber spine moter stegnth lower extremities ,thigh and legs 5/5 Right side , 5/5 Left side deep tendon reflexes : normal Knee Jerk , normal ankle Jerk lumber facet Loading Test =positive Right , positive Left Range of motion of the lumbar spine Flexion 30 degrees, extension 10 degrees strait leg raising test = positive at 45 degree Fabere test= positive Right , and positive LT . Sever tenderness over the Sacroiliac joint on the Right , and Left sides Gaenslen test= positive right ,and positive left . Seated flexion test= positive right ,and positive Left . Assessment and Plan Plan: Assessment and plan=1-right shoulder arthralgia Pain improved after right shoulder steroid injection. 2-lumbar spondylosis with lumbar facet arthropathy. Status post RFA of the medial branch lumbar area done in March 2020. 3-bilateral sacroiliitis. Patient could benefit from repeat bilateral sacroiliac joint steroid injection. Time with Patient: Less than 30 PQRS Measure Charge Sheet Measure #130: Documentation of Current Meds in Medical Chart: Patient's medications documented in chart Measure #226: Tobacco Use: Screen & Cessation Intervention: Pt not a tobacco user Measure #111: Pneumonia Vaccination: Pneumococcal vaccine NOT administered or previously given Measure #47: Advance Care Plan: Advance care planning discussed & documented, pt chose/unable to give Measure #412: Opioid Treatment Agreement: No documentation of signed opioid treatment agreement Measure #408: Opioid Therapy Follow-up Evaluation: Patient had NO f/u eval minimum every 3 months during opioid therapy Measure #317: Preventitive Care & Scrn High Bld Press & F/U: Normal blood pressure, f/u not required Measure #128: Body Mass Index (BMI) Screening & Follow-up: BMI documented within normal parameters Measure #131: Pain Assessment & Follow-up: Pain positive & plan documented, Follow-up scheduled Measure #431: Unhealthy Alcohol Use Preventative Care & Scrn: Patient not identified as an unhealthy alcohol user
== END | disposition home or self-care (01) ==
LOC: PNWHC3 11:00
PROVIDERS: ATTEND Specialist
DX: M25.511 Pain in right shoulder (principal); M47.816 Spondylosis without myelopathy or radiculopathy, lumbar region; M46.1 Sacroiliitis, not elsewhere classified
CPT/HCPCS: 99211

== ENCOUNTER 2020-09-29 13:23 | Day surgery (SDC) | payer MEDICARE, OTHER ==
[2020-09-25 18:10] VITALS: BMI 25.5
[2020-09-29] MEDS ORDERED: LACTATED RINGERS 1,000 ML IV ONE (13:57)
[2020-09-29 14:03] VITALS: TEMP 98.9
[2020-09-29] MEDS ORDERED: TRIAMCINOLONE ACETONIDE 40 MG/ML 1 ML VIAL ONE (14:04)
[2020-09-29] MEDS ORDERED: fentaNYL (PF) 50 MCG/ML 2 ML AMP ONE (14:04)
[2020-09-29] MEDS ORDERED: MIDAZOLAM 2 MG/2 ML VIAL ONE (14:04)
[2020-09-29] MEDS ORDERED: ROPIVACAINE 5MG/ML 20ML VIAL ONE (14:04)
--- NOTE | 2020-09-29 14:21 | P.PCN ---
Date of Procedure: 09/29/20 Surgeon: Asif Persaud Pathology: none sent Condition: stable Disposition: PACU Description of Procedure: Preoperative diagnoses= bilateral sacroiliac joint dysfunction and sacroiliitis , myofascial pain Postoperative diagnoses= same as preoperative diagnosis. Procedure= bilateral sacroiliac joint steroid injection under fluoroscopic guidance. Trigger point injection in the lumbar paravertebral musculature and right shoulder area. Anesthesia= local anesthesia with lidocaine 1% and IV moderate conscious sedation with fentanyl and Versed Estimated blood loss=minimal. Procedure indication= the patient had a history of severe chronic low back pain, diagnosed with sacroiliitis and lumbar sacral facet arthropathy unresponsive to conservative treatment. Procedure description= the patient was seen and identified in the preoperative holding area, risks and benefits and alternative of the procedure and possible complications discussed with the patient, patient signed the consent. an IV was started, and vital signs were monitored and were stable throughout the procedure, patient was placed in the prone position or table and the lumbosacral area was prepped and draped with a sterile fashion, vital signs were closely monitored during the procedure.The sacroiliac joint was identified on the AP view of fluoroscopy then the C-arm was tilted to the contralateral oblique position to superimpose the anterior and posterior joint lines on each other and to have a unified joint line with the target point at the inferior one third of this line. I used 22-gauge 3-1/2 inch Quincke spinal needle for this procedure and after getting into the sacroiliac joint I injected 20 mg of Kenalog +2 MLS of Ropivacaine 0.5%. the other side was done in the same manner. The total dose of Kenalog received today is 40 mg. Patient tolerated the procedure well without any complication, The patient returned to supine position after the back was cleaned and a Band-A id applied, A copy of the needle placement was saved to the C-arm machine. I then turned my attention into doing the trigger point injection in the lumbar paravertebral musculature and also in the right shoulder area for the trapezius muscles, and rhomboid muscles. I injected 1 mL of ropivacaine 0.5% at each trigger point. A total of 4 injections were done on the lumbar paravertebral musculature and another four in the right shoulder area. Patient tolerated procedure well. the patient transported to recovery room in stable condition and he was monitored for 30 minutes before she was discharged home in stable condition . patient will follow up with the pain clinic in a few weeks.
[2020-09-29 14:28] VITALS: RESP 16
[2020-09-29 14:44] VITALS: BP 151/65; PULSE 89
[2020-09-29] MEDS ORDERED: IV FLUID CONTINUATION 1,000 ML IV ONE (14:46)
--- NOTE | 2020-09-29 15:59 | FL ---
Fluoroscopy HISTORY: Pain 6 seconds fluoroscopy time supplied to the referring clinician. 2 intraoperative C-arm images docume nt the procedure. See dictated report from anesthesia.
== END 2020-09-29 14:55 | disposition home or self-care (01) ==
LOC: ORPAIN 13:23
PROVIDERS: ATTEND Anesthesiology
DX: G89.29 Other chronic pain (principal); M53.3 Sacrococcygeal disorders, not elsewhere classified; M46.1 Sacroiliitis, not elsewhere classified; Z88.5 Allergy status to narcotic agent
CPT/HCPCS: 81025; 20553; J2250; J3301; J3010; J2795; G0260; 99152

== ENCOUNTER → 2020-11-02 | Outpatient (CLI) | payer MEDICARE, OTHER ==
[2020-11-02 12:47] VITALS: BP 142/93; PULSE 111; RESP 16; TEMP 98
--- NOTE | 2020-11-02 12:58 | P.PN ---
Subjective Progress Note Date: 11/02/20 this is follow-up visit for this 40 years old female with a chronic history of right shoulder pain and low back pain she is diagnosed with right shoulder arthralgia and recently we did a right shoulder steroid injection 2 ,and patient reported that her shoulder pain improved significantly, and also patient had severe and chronic low back pain she is diagnosed with lumbar spondylosis with lumbar facet arthropathy, and bilateral sacroiliitis , previously we did bilateral sacroiliac joint steroid injection and RFA of the medial branch lumbar area , currently she is complaining of severe low back pain , the pain is constant and increases with any activity she denies any numbness or tingling sensation, she had no motor or sensory deficit she has no change in bowel movement or urination she has no fever or night sweats, she continues to use Neurontin 800 mg 3 times a day Motrin 800 mg 3 times a day and baclofen 10 mg 3 times a day she denies any side effect of the medication, she is getting prescription refills from her primary care, so patient complaining of severe neck pain mainly on the right side, she denies any motor or sensory deficit in the upper extremity Objective - Vital Signs Vital signs: Vital Signs Temp 98.0 F 11/02/20 12:44 Pulse 111 H 11/02/20 12:44 Resp 16 11/02/20 12:44 BP 142/93 11/02/20 12:44 Pulse Ox 98 11/02/20 12:44 - Exam Physical examination -Constitutiona : Cooperative , not in acute distress . -HEENT : nech : supple , no Lymphadenopathy , normal thyroid size . : eyes : no ptosis , no icterus, no photophobia . - neurologic : Cranial nerve II to XII intact , no focal neurological deffecit . -psychatric : alert , oriented X 3 , appropriate affect , intact judgment and insight . -Lymphatic : no Lymphadenopathy . - musculoskeltal : Comfortable trigger point identified in the right side cervical paraspinal muscles Lumber spine moter stegnth lower extremities ,thigh and legs 5/5 Right side , 5/5 Left side deep tendon reflexes : normal Knee Jerk , normal ankle Jerk lumber facet Loading Test =positive Right , positive Left Range of motion of the lumbar spine Flexion 30 degrees, extension 10 degrees strait leg raising test = positive at 45 degree Fabere test= positive Right , and positive LT . Sever tenderness over the Sacroiliac joint on the Right , and Left sides Gaenslen test= positive right ,and positive left . Seated flexion test= positive right ,and positive Left . Assessment and Plan Plan: Assessment and plan=1-myofascial pain syndrome cervical area 2-lumbar spondylosis with lumbar facet arthropathy. He should get excellent relief after RFA of the medial branch lumbar area done in March 2020. 3-bilateral sacroiliitis. Patient could benefit from repeat RFA of the medial branch lumbar area( at L4 5, L5-S1 ) Patient had temporary relief from trigger point injection done in the past in the cervical area, we will send her for physical therapy evaluation and treatment for possible massage/TENS unit Time with Patient: Less than 30 PQRS Measure Charge Sheet - PQRS measures = - Patient's medications are documented in the chart. -Tobacco use is negative and counseling.Given. -Patient's has not received pneumococcal vaccine. -Advanced care planning discussed, patient not eligible. -Opiate contract signed. -Pain positive and follow-up visit/procedure is scheduled. -Patient's blood pressure measured [ 142/95 ] , and documented in the record ,and patient will follow up with the primary care. -Patient's weight was measured and body mass index [ ] above the normal limits and counseling was done. and patient instructed to follow-up with the primary care physician. -Patient was not identified as an unhealthy alcohol user Time with Patient: Less than 30
== END | disposition home or self-care (01) ==
LOC: PNWHC3 12:28
PROVIDERS: ATTEND Specialist
DX: M47.816 Spondylosis without myelopathy or radiculopathy, lumbar region (principal); M79.18 Myalgia, other site; Z79.899 Other long term (current) drug therapy; Z79.891 Long term (current) use of opiate analgesic
CPT/HCPCS: 99211

== ENCOUNTER 2020-11-20 11:36 | Day surgery (SDC) | payer MEDICARE, OTHER ==
[2020-11-18 14:54] VITALS: BMI 25.0
[2020-11-20 11:58] VITALS: RESP 18; TEMP 98.8
[2020-11-20] MEDS ORDERED: LACTATED RINGERS 1,000 ML IV ONE (12:01)
[2020-11-20] MEDS ORDERED: LIDOCAINE 1% (10MG/ML) FOR IV START INTRADERMA ONE (12:01)
[2020-11-20] MEDS ORDERED: methylPREDNISolone ACETATE 40 MG/ML 1 ML VIAL ONE (12:24)
[2020-11-20] MEDS ORDERED: MIDAZOLAM 2 MG/2 ML VIAL ONE (12:24)
[2020-11-20] MEDS ORDERED: fentaNYL (PF) 50 MCG/ML 2 ML AMP ONE (12:24)
[2020-11-20] MEDS ORDERED: ROPIVACAINE 5MG/ML 20ML VIAL ONE (12:24)
--- NOTE | 2020-11-20 12:56 | P.PCN ---
Date of Procedure: 11/20/20 Procedure(s) Performed: PREOPERATIVE DIAGNOSIS: 1-Lumbar Spondylosis with Facet Arthropathy without myelopathy. POSTOPERATIVE DIAGNOSIS: 1- Lumbar Spondylosis with Facet Arthropathy without myelopathy. PROCEDURES : Bilateral Radiofrequency thermocoagulation, L3 , L4 , and L5 medial branch, with fluoroscopic guidance (fluoroscopy images available in the radiology department) ( to denervate the facet joint at L4-5 ,and L5-S1 levels ). ANESTHESIA: Moderate sedation with intravenous versed 4 mg and fentaneyl 100 mcg, and local infiltration with Ropivacaine 0.5 % . EBL: Minimal PROCEDURE INDICATION: The patient with low back pain secondary to lumbar facet arthropathy who had more than 50% relief of her pain with previous diagnostic lumbar medial branch block with bupivacaine. PROCEDURE DESCRIPTION / TECHNIQUE: The patient was seen and identified in the preoperative area. Risks, benefits, complications, including but not limited to risk of infection ,bleeding , allergic reactions to the medications and no complete pain releife , and alternatives were discussed with the patient, the patient agreed to proceed with the procedure and signed the consent. IV was started. Vital signs remained stable throughout the procedure. Patient was taken to the OR and time out was completed. The patient was placed in the prone position on the procedure table. The lumber area was prepped and draped in the usual sterile fashion. . Vital signs were closely monitored during the procedure .IV sedation was used during the procedure to decrease patients anxiety. Using AP and then oblique fluoroscopy, the ``eye of the Rohit dog corresponding to the connection between the superior and transverse articular processes of right L3, L4, and L5 were identified, marked, and localized with 1% lidocaine. Subsequently, a 18 [id number] radiofrequency cannula with a 10- mm active tip was advanced guided by fluoroscopy to each of the``eyes of the Rohit dog at right L3, L4, and L5. Each site then underwent sensory testing at 50 Hz and 0 to 1 volt and motor testing at 2.5 Hz and 0 to 3 volt with local stimulation, but no radicular symptoms down the legs. Thereafter each sites underwent radiofrequency thermocoagulation at 80 degrees celsius for 90 seconds after injecting 0.5 ml of PF Ropivacaine 1ml, then after the thermocoagulation done , 1 ml of the block solution containing Depo-Medrol 20 mg and 3 ml of Ropivacaine 0.5% was injected at the right L3 , L4 , and L5 , levels after negative aspiration of CSF and blood and with no paresthesias. Cannulas were retracted while injecting lidocaine 1% until the needle is out. The same procedure was repeated at the level of Left L3, L4, and L5 levels. At the end of the procedure, the skin was cleansed and bandages were applied. COMPLICATIONS: No acute complications. DISPOSITION / PLANS: The patient was placed in a supine position and transferred to the recovery area in a stable condition for observation and was discharged from the recovery room after meeting discharge criteria. Home d ischarge instructions given to the patient by the staff. The patient was reexamined prior to discharge. The patient will schedule a follow up in the clinic in 2-4 weeks.
[2020-11-20] MEDS ORDERED: IV FLUID CONTINUATION 650 ML IV ONE (13:00)
[2020-11-20 13:27] VITALS: BP 125/90; PULSE 88
--- NOTE | 2020-11-20 14:59 | FL ---
Fluoroscopy HISTORY: Pain 18 seconds fluoroscopy time supplied to the referring clinician. 6 intraoperative C-arm images docum ent the procedure. See dictated report from anesthesia.
== END 2020-11-20 13:29 | disposition home or self-care (01) ==
LOC: ORPAIN 11:36
PROVIDERS: ATTEND Specialist
DX: M47.816 Spondylosis without myelopathy or radiculopathy, lumbar region (principal); M46.1 Sacroiliitis, not elsewhere classified; Z88.5 Allergy status to narcotic agent
CPT/HCPCS: 81025; 64635; 64636; J2250; J1030; J3010; J2795; 99152; 99153

== ENCOUNTER 2021-05-14 05:44 | Day surgery (SDC) | payer MEDICARE, OTHER ==
[2021-05-13 09:00] VITALS: BMI 23.5
[2021-05-14] MEDS ORDERED: SCOPOLAMINE 1.5MG/72HR PATCH TRANSDERM ONE (06:11)
[2021-05-14] MEDS ORDERED: MIDAZOLAM 2 MG/2 ML VIAL IV PRN (06:11)
[2021-05-14] MEDS ORDERED: DEXAMETHASONE SOD PHOSPHATE 4 MG/ML 1 ML VIAL IV ONE (06:11)
[2021-05-14] MEDS ORDERED: LIDOCAINE 1% (10MG/ML) FOR IV START INTRADERMA ONE (06:30)
[2021-05-14] MEDS: LACTATED RINGERS 1,000 ML IV SCH ×2 (06:30→07:25)
[2021-05-14 06:58] VITALS: TEMP 98.1
[2021-05-14] MEDS: ONDANSETRON 4 MG/2 ML VIAL IVP ONE ×2 (07:04→09:49)
[2021-05-14] MEDS ORDERED: PROPOFOL 10 MG/ML 20 ML VIAL IV ONE (07:21)
[2021-05-14] MEDS ORDERED: fentaNYL (PF) 50 MCG/ML 2 ML AMP ONE (07:21)
[2021-05-14] MEDS ORDERED: ROPIVACAINE 5MG/ML 20ML VIAL ONE (07:21)
[2021-05-14] MEDS ORDERED: DEXAMETHASONE SOD PHOSPHATE 4 MG/ML 1 ML VIAL ONE (07:21)
[2021-05-14] MEDS ORDERED: LIDOCAINE 1% INJ 10MG/ML (20 ML MDV) ONE (07:21)
[2021-05-14] MEDS ORDERED: MIDAZOLAM 2 MG/2 ML VIAL ONE (07:21)
[2021-05-14] MEDS ORDERED: BUPIVACAINE (PF) 0.25% 30 ML VIAL SQ ONE ×2 (07:26)
--- NOTE | 2021-05-14 07:56 | P.ANPRN ---
Procedure Note - Anesthesia - Nerve Block Performed Left Adductor Canal Single Time Out Performed: Yes Date of Procedure: 05/14/21 Procedure Start Time: 06:41 Procedure Stop Time: 06:49 Location of Patient: PreOp Indication: Acute Post-Operative Pain, Requested by Surgeon Sedation Type: Sedate with meaningful contact maintained Preparation: Sterile Prep, Sterile Dressing Position: Supine Catheter: None Needle Types: Pajunk Needle Gauge: 20 Ultrasound used to visualize needle placement: Yes Ultrasound used to observe medication spread: Yes Injectate: 0.5% Ropivacaine (see comment for volume) (15 ml + decadron 4 mg) Blood Aspirated: No Pain Paresthesia on Injection Noted: No Resistance on Injection: Normal Image Stored and Saved: Yes Events: Uneventful and Well Tolerated Left Popliteal Single Time Out Performed: Yes Date of Procedure: 05/14/21 Procedure Start Time: :49 Procedure Stop Time: 06:56 Location of Patient: PreOp Indication: Acute Post-Operative Pain, Requested by Surgeon Sedation Type: Sedate with meaningful contact maintained Preparation: Sterile Prep, Sterile Dressing Position: Right Lateral Catheter: None Needle Types: Pajunk Needle Gauge: 20 Ultrasound used to visualize needle placement: Yes Ultrasound used to observe medication spread: Yes Injectate: 0.5% Ropivacaine (see comment for volume) (15 ml + decadron 4 mg) Blood Aspirated: No Pain Paresthesia on Injection Noted: No Resistance on Injection: Normal Image Stored and Saved: Yes Events: Uneventful and Well Tolerated
[2021-05-14] MEDS ORDERED: ceFAZolin 1,000 MG in SODIUM CHLORIDE 0.9% 1,000 ML IRRIGATION ONE (07:59)
[2021-05-14] MEDS ORDERED: LACTATED RINGERS 1,000 ML IV ONE (08:20)
[2021-05-14] MEDS ORDERED: KETOROLAC 15 MG/ML 1 ML VIAL ONE (08:58)
[2021-05-14] MEDS ORDERED: HYDROmorphone 0.5 MG/0.5 ML SYRINGE IVP ONE (09:02)
[2021-05-14] MEDS: fentaNYL (PF) 50 MCG/ML 2 ML AMP IV PRN ×2 (09:08→09:14)
--- NOTE | 2021-05-14 09:14 | P.OP ---
Date of Procedure: 05/14/21 Preoperative Diagnosis: Posttraumatic DJD left foot Postoperative Diagnosis: Same Procedure(s) Performed: First tarsometatarsal joint arthrodesis left foot Implants: Arthrex plantar Lapidus plate with associated screws, 1 mL DBM, Anesthesia: AIDA Surgeon: Edmundo Sahu Estimated Blood Loss (ml): 3 Pathology: none sent Condition: stable Disposition: PACU Indications for Procedure: Painful first tarsometatarsal joint secondary to previous trauma. Unresponsive to conservative treatment. Operative Findings: Severe thinning of the articular cartilage of both the distal aspect of the medial cuneiform and the base of the first metatarsal. Description of Procedure: Patient was brought into the operative room placed on table supine position. Timeout was taken to confirm correct patient identifiers, correct procedure, correct site of surgery. When the room was in agreement the patient was induced and placed under general anesthesia. A well-padded tourniquet was placed on the left ankle. Then 20 mL of 0.25% Marcaine was injected as a left ankle block. Then the left leg was prepped and draped usual manner. The leg was exsanguinated the tourniquet inflated to 250 mmHg. Attention directed over the medial aspect of the midfoot were curved incision was made at the junction of the plantar and dorsal skin at the level of the first tarsometatarsal joint area to the incision was deepened down to the subcutaneous layer careful to identify voiding retract any neurovascular structures and cauterize any bleeding vessels. Dissection continued down to the joint capsule as well as the fascia overlying the abductor hallucis muscle belly. The fascia was sharply dissected off the plantar surface of the first metatarsal taking care to protect the underlying neurovascular structures and avoiding trauma to the muscle. Then a capsulotomy was performed through the tarsometatarsal joint and then the joint was distracted. A sagittal saw was used to resect small portions of articular surface of both the cuneiform and the metatarsal, to avoid excessive shortening. Then a 2.0 mm drill bit was used to fenestrate both surfaces to facilitate bleeding and bony ingrowth. 1 mL of DBM was placed between the arthrodesis segments. A K wire was then used to provide temporary fixation for the arthrodesis site. Then an Arthrex 10 mm compression staple was inserted with proper technique on the dorsomedial side of the arthrodesis site which allowed for stabilization compression. An Arthrex plantar Lapidus plate was positioned and temporarily fixated over the arthrodesis site. Fluoroscopy was used to adjust and then confirm final positioning. The first screw placed was a plantar distal screw which was a 3. once that was completed a drill hole was made to the compression slot of the plate where a 4.0 cancellous screw was inserted and advanced until it engaged the plate and compressed the arthrodesis site. Fluoroscopy was used to confirm the position of the screw and to confirm that the arthrodesis site was compressed. The next screw was the plantar proximal screw which was another 4.0 cancellous screw 5 cortical screw. The third screw was the distal medial screw which was a 3.5 locking screw. The last screw was the proximal plantar medial screw which was a 4.0 cancellous screw. Once all screws were placed they were all checked for tightness and then fluoroscopy was used to confirm all position of the screws as well as maintain compression at the arthrodesis site. The guidewire was removed from the temporary fixation wound is then irrigated thoroughly with antibiotic saline. Deep closure was done with 2-0 Vicryl, subcu closure was done with 4-0 Monocryl,and skin closure done with 3-0 Stratafix. an Arthrex Gemzar dressing was placed over the incision. Then a dry sterile dressing applied left foot. The tourniquet was released and capillary refill return to all digits on the left foot. Patient's placed a below-knee fracture boot with ankle neutral position. Anesthesia was reversed and the patient was taken recovery with vital signs stable.
[2021-05-14] MEDS ORDERED: ONDANSETRON 4 MG/2 ML VIAL ONE (09:50)
[2021-05-14 11:02] VITALS: RESP 16
[2021-05-14 11:06] VITALS: BP 110/68; PULSE 97
== END 2021-05-14 11:36 | disposition home or self-care (01) ==
LOC: OR 05:44
PROVIDERS: ATTEND Podiatrist
DX: M19.172 Post-traumatic osteoarthritis, left ankle and foot (principal); F32.9 Major depressive disorder, single episode, unspecified; Z79.899 Other long term (current) drug therapy; R51.9 Headache, unspecified; F17.210 Nicotine dependence, cigarettes, uncomplicated; J45.909 Unspecified asthma, uncomplicated; Z79.82 Long term (current) use of aspirin
CPT/HCPCS: 28737; 64447; 81025; 64445; 76942; C1713 ×3; J2250; J1100; J0690 ×2; J2405; J2001; J3010; J1885; J2704; J1170; J2795